=== PATIENT | male | born 1940 | race Caucasian/White ===

== ENCOUNTER 2016-07-14 19:13 | Emergency (ER) | payer MEDICARE, OTHER ==
[2016-07-14] MEDS ORDERED: IBUPROFEN 600 MG TABLET PO STA (20:37)
[2016-07-14] MEDS ORDERED: HYDROcod/ACETAM 5/325 MG TABLET PO STA (20:37)
[2016-07-14] MEDS ORDERED: HYDROcod/ACET 5/325 Prepack 6 PO ONE ×2 (20:40→20:44)
[2016-07-14] MEDS ORDERED: HYDROcod/ACETAM 5/325 MG TABLET ONE (20:43)
[2016-07-14] MEDS ORDERED: IBUPROFEN 600 MG TABLET PO ONE (20:44)
--- NOTE | 2016-07-14 21:28 | XRAY Preliminary Report ---
Exam: XR Ribs w/PA Chest RT IMPRESSION: No rib fracture or pneumothorax. [facility] SITE ID: [id number]
--- NOTE | 2016-07-14 21:30 | XRAY Report ---
EXAM: RIGHT RIB RADIOGRAPHY EXAM DATE: 07/14/2016 09:03 PM. CLINICAL HISTORY: Fall with right thoracic back bruising/pain. COMPARISON: None. TECHNIQUE: 1 view of the chest and 1 views of the ribs. FINDINGS: Bones: Normal. No fracture or bone lesion. Lungs: No focal opacities. No pneumothorax. No pleural effusions. Mediastinum: Heart and mediastinal contours are unremarkable. Other: None. IMPRESSION: No rib fracture or pneumothorax. [facility] Referring Provider Line: [phone] SITE ID: [id number]
--- NOTE | 2016-07-14 21:40 | ED Physician Documentation ---
PD HPI TRUNK INJURY - Stated complaint Stated Complaint: BACK PX/GLF - Chief complaint Chief Complaint: General - History obtained from History obtained from: Patient, Family - History of Present Illness Location: Mid back (mid right thoracic) Type of injury: Fall (slipped and fell onto stump, striking that area of the back) Timing - onset: How many days ago (5) Timing - duration: Days (He thought it would be getting better at this point, but hurting same or worse. Local bruising.) Timing - details: Abrupt onset, Still present Quality: Pain, Spasm Worsened by: Moving, Palpating, Other (deep breathing) Associated symtptoms: No: Weakness, Numbness Contributing factors: No: Anticoagulated Where injury occured: Work Similar symptoms before: Has not had sx before Recently seen: Not recently seen Review of Systems Constitutional: denies: Fever, Chills Cardiac: denies: Palpitations Respiratory: denies: Dyspnea, Cough, Wheezing GI: denies: Abdominal Pain, Nausea, Vomiting : denies: Hematuria Skin: reports: Abrasion (s) (and also big bruise at area). denies: Rash, Lesions Musculoskeletal: reports: Back pain PD PAST MEDICAL HISTORY - Past Medical History Past Medical History: No Respiratory: None Endocrine/Autoimmune: None - Past Surgical History Past Surgical History: Yes Derm: Skin cancer surgery - Present Medications Home Medications: Ambulatory Orders Medication Instructions Recorded Confirmed Hydrocodone/Acetaminophen [[place] 1 each PO Q6H PRN #20 tablet 07/14/16 5-325 Tablet] - Allergies Allergies/Adverse Reactions: Allergies Allergy/AdvReac Type Severity Reaction Status Date / Time No Known Drug Allergies Allergy Verified 07/14/16 19:22 - Social History Does the pt smoke?: No Smoking Status: Never smoker Does the pt drink ETOH?: No Does the pt have substance abuse?: No - Immunizations Immunizations are current?: Yes - POLST Patient has POLST: No PD ED PE NORMAL - Vitals Vital signs reviewed: Yes - General General: Alert and oriented X 3, No acute distress, Well developed/nourished - HEENT HEENT: Atraumatic - Neck Neck: Supple, no meningeal sign, No bony TTP - Cardiac Cardiac: RRR, No murmur - Respiratory Respiratory: Clear bilaterally - Abdomen Abdomen: Soft, Non tender - Back Back: No CVA TTP, Other (right thoracic area with bruising and tenderness but no crepitance about t8-10 area. ) - Derm Derm: Normal color, Warm and dry - Neuro Neuro: Alert and oriented X 3, No motor deficit, No sensory deficit, Normal speech Results - Vitals Vitals: Oxygen O2 Source Room air - Rads (name of study) rib with chest Radiology: Prelim report reviewed (no fractures seen. Lungs normal. ) PD MEDICAL DECISION MAKING - ED course Complexity details: considered differential (big bruise on exam and symptoms concerning for rib fractures, but none seen on CT. ), d/w patient Departure - Departure Disposition: Home, Self Care Clinical Impression: Accidental fall Qualifiers: Encounter type: initial encounter Qualified Code(s): W19.XXXA - Unspecified fall, initial encounter Back contusion Qualifiers: Encounter type: initial encounter Laterality: right Qualified Code(s): S20.221A - Contusion of right back wall of thorax, initial encounter Condition: Stable Record reviewed to determine appropriate education?: Yes Instructions: ED Contusion Back Follow-Up: Humberto Hanks MD [Primary Care Provider] - Prescriptions: Hydrocodone/Acetaminophen [[place] 5-325 Tablet] 1 each PO Q6H PRN #20 tablet PRN Reason: Pain Comments: No fractures on xray. Still hurts though. Naproxen or Ibuprofen twice daily and add hydrocodone as needed for pains. Activity as able. Discharge Date/Time: 07/14/16 22:15
[2016-07-14 21:50] VITALS: BP 168/85
== END 2016-07-14 22:15 | disposition home or self-care (01) ==
LOC: ED 19:13
DX: S20.221A Contusion of right back wall of thorax, initial encounter (principal); W19.XXXA Unspecified fall, initial encounter
CPT/HCPCS: 71101; 99283; A9270

== ENCOUNTER 2016-08-31 14:01 | Outpatient (CLI) | payer MEDICARE, OTHER ==
--- NOTE | 2016-08-31 20:55 | XRAY Report ---
THREE VIEW RIGHT FOOT: 08/31/2016 CLINICAL INDICATION: Right heel pain. AP, lateral, oblique views of the right foot demonstrate plantar calcaneal spurring. There is no davina dence of acute fracture or dislocation. No radiopaque foreign body is seen in the soft tissues. IMPRESSION: PLANTAR CALCANEAL SPURRING. JOB #: [id number] EXT JOB #:[id number]
== END 2016-08-31 14:02 | disposition home or self-care (01) ==
LOC: DI 14:01
PROVIDERS: ATTEND Podiatrist
DX: M77.31 Calcaneal spur, right foot (principal)

== ENCOUNTER 2016-10-22 04:44 | Emergency (ER) | payer MEDICARE, OTHER ==
[2016-10-22] MEDS ORDERED: LIDOCAINE 2%-EPI 1:100000 20 ML MDV ONE (05:03)
[2016-10-22] MEDS ORDERED: TETANUS/DIPHTHERIA/PERTUSSIS 0.5 ML SYRINGE IM ONE ×2 (05:04→06:09)
--- NOTE | 2016-10-22 05:53 | ED Physician Documentation ---
PD HPI HEAD INJURY - Stated complaint Stated Complaint: FOREHEAD LACERATION - Chief complaint Chief Complaint: Laceration - History obtained from History obtained from: Patient, Family - History of Present Illness Mechanism of head injury: Fell Where head injury occurred: Home Timing - onset: How many minutes ago (30) Location of injury: Left, Front Quality of pain: Pain, Throbbing Associated symptoms: No: LOC, AMS, Nausea / vomiting, Neck pain Symptoms worsen with: Palpation, Movement Contributing factors: No: Anticoagulated, Intoxicated Similar symptoms before: Has not had sx before Recently seen: Not recently seen - Additional information Additional information: Patient is a 76 year old male presenting to the emergency department for a head laceration. patient states that he was walking his dogs when he got pulled over and hit his head on a pipe causing a laceration. patient denies any loc or any other injuries. Patient is not on blood thinners and is awake and alert. Review of Systems Constitutional: denies: Fever, Chills Eyes: denies: Loss of vision, Decreased vision Ears: denies: Drainage/discharge Nose: denies: Epistaxis Throat: denies: Dental pain / toothache Cardiac: denies: Chest pain / pressure GI: denies: Nausea, Vomiting : reports: Reviewed and negative Skin: reports: Laceration (s) Musculoskeletal: denies: Neck pain, Back pain, Extremity pain, Joint pain Neurologic: reports: Head injury. denies: Generalized weakness, Focal weakness , Syncope, Seizure, Confused, Altered mental status, LOC Immunocompromised: denies: Immunocompromised PD PAST MEDICAL HISTORY - Past Medical History Respiratory: None Endocrine/Autoimmune: None - Past Surgical History Past Surgical History: Yes Derm: Skin cancer surgery - Present Medications Home Medications: Ambulatory Orders Medication Instructions Recorded Confirmed Diabetic Med 10/22/16 - Allergies Allergies/Adverse Reactions: Allergies Allergy/AdvReac Type Severity Reaction Status Date / Time No Known Drug Allergies Allergy Verified 10/22/16 04:52 - Social History Does the pt smoke?: No Smoking Status: Never smoker Does the pt drink ETOH?: No Does the pt have substance abuse?: No - Immunizations Immunizations are current?: Yes - POLST Patient has POLST: No PD ED PE NORMAL - Vitals Vital signs reviewed: Yes - General General: Alert and oriented X 3 - HEENT HEENT: PERRL, Ears normal, Moist mucous membranes - Neck Neck: Supple, no meningeal sign, No bony TTP - Cardiac Cardiac: No murmur - Respiratory Respiratory: No respiratory distress - Derm Derm: Other (laceration as described above) - Extremities Extremities: No deformity, Normal ROM s pain - Neuro Neuro: Alert and oriented X 3, No motor deficit, No sensory deficit, Normal speech - Psych Psych: Normal mood PD ED PE EXPANDED - HEENT HEENT: Head injury (3cm laceration with surrounding abrasion over patient's left eye) Results - Vitals Vitals: Vital Signs - 24 hr 10/22/16 04:50 Temperature 36.5 C Heart Rate 66 Respiratory 18 Rate Blood Pressure 199/99 H O2 Saturation 96 Oxygen O2 Source Room air Procedures - Laceration (location) left forehead Length in cm: 3 Wound type: Curved Neurovascular status: Sensory intact, Vascular intact Anesthesia: Lidocaine 2% with epi Wound Preparation: Chlorhexadine, Irrigated copiously NS Skin layer closure: Size #-0 - enter number (5), Sutures - enter # (4) Other: Patient tolerated well, Dressing applied, Tetanus booster given Complexity: Simple PD MEDICAL DECISION MAKING - ED course Complexity details: reviewed old records, re-evaluated patient, considered differential, d/w patient, d/w family ED course: Patient was seen and examined at bedside. Patient's laceration was cleaned and repaired as described above. patient was given his tdap. patient required no imaging at this time and was stable for discharge with outpatient follow up. Departure - Departure Disposition: 01 Home, Self Care Clinical Impression: Laceration, Accidental fall Instructions: ED Laceration Facial Sutr Tape Follow-Up: Humberto Hanks MD [Primary Care Provider] - Within 1 week (follow up with your doctor in 5-7 days for suture removal) Comments: Your symptoms today were being caused by a facial laceration and abrasion. it is important to keep the wound clean and dry. You should apply topical antibiotic on the wound and monitor for signs of infection. You should follow up with your doctor in 5-7 days for suture removal. You may return to the emergency department at any time for new, worsening or uncontrollable symptoms.
[2016-10-22 06:16] VITALS: BP 152/83
== END 2016-10-22 06:16 | disposition home or self-care (01) ==
LOC: ED 04:44
DX: S01.81XA Laceration without foreign body of other part of head, initial encounter (principal); W01.198A Fall on same level from slipping, tripping and stumbling with subsequent striking against other object, initial encounter; Y93.K1 Activity, walking an animal; Z23 Encounter for immunization
CPT/HCPCS: 12013; 99283

== ENCOUNTER 2017-09-26 16:59 | Outpatient (CLI) | payer MEDICARE, OTHER ==
--- NOTE | 2017-09-26 18:13 | Ultrasound Report ---
Procedure Date: 09/26/2017 Accession Number: [id number] / [id number] Procedure: US - Head or Neck Soft Tissue CPT Code: FULL RESULT: EXAM: NECK ULTRASOUND EXAM DATE: 09/26/2017 05:51 PM. CLINICAL HISTORY: LOCALIZED SWELLING, MASS AND LUMP, NECK. COMPARISON: None. TECHNIQUE: Real time sonographic imaging of the thyroid was performed by the category manager. Multiple event sales representative static images were saved for review. FINDINGS: THYROID GLAND: Right Lobe: 4.2 x 1.5 x 1.7 cm, volume 6 cc. Normal background echotexture. Right Lobe Nodules: None. Left Lobe: 4.3 x 1.9 x 1.7 cm, volume 7 cc. Normal background echotexture. Left Lobe Nodules: None. Isthmus: 0.5 cm AP. Isthmic Nodules: None. LYMPH NODES: No adenopathy demonstrated in the central or lateral compartment. OTHER: No sonographic abnormalities in the area of discomfort within the right neck. IMPRESSION: Negative soft tissue neck ultrasound. Management recommendations are based on 2015 [place] [employer] Management Guidelines for Adult Patients with Thyroid Nodules and Differentiated Thyroid Cancer. [facility]
== END 2017-09-26 17:00 | disposition home or self-care (01) ==
LOC: DI 16:59
PROVIDERS: ATTEND Physician Assistant Medical
DX: R22.1 Localized swelling, mass and lump, neck (principal)
CPT/HCPCS: 76536

== ENCOUNTER 2018-03-12 08:00 | Outpatient (CLI) | payer MEDICARE, OTHER ==
[2018-03-12 20:19] LABS: BASOPHILS % (AUTO) 0.3 %; EOSINOPHILS # (AUTO) 0.1 10^3/uL (0.0-0.7); EOSINOPHILS % (AUTO) 1.1 %; HGB - HEMOGLOBIN 12.6 g/dL (14.0-18.0); LYMPHOCYTES # (AUTO) 3.7 10^3/uL (1.5-3.5); LYMPHOCYTES % (AUTO) 38.2 %; MEAN CORPUSCULAR HGB CONC 34.6 g/dL (32.0-36.0); MEAN CORPUSCULAR VOLUME 92.7 fL (80.0-94.0); MONOCYTES # (AUTO) 0.6 10^3/uL (0.0-1.0); MONOCYTES % (AUTO) 6.1 %; NEUTROPHILS # (AUTO) 5.3 10^3/uL (1.5-6.6); NEUTROPHILS % (AUTO) 54.3 %; PLT - PLATELET COUNT 214 10^3/uL (130-450); RED BLOOD COUNT 3.92 10^6/uL (4.70-6.10); RED CELL DISTRIBUTION WIDTH 14.1 % (12.0-15.0); WHITE BLOOD COUNT 9.7 x10^3/uL (4.8-10.8)
[2018-03-12 20:30] LABS: ALBUMIN 3.8 g/dL (3.2-5.5); ALBUMIN/GLOBULIN RATIO 1.1 (1.0-2.2); BILIRUBIN,TOTAL 0.5 mg/dL (0.2-1.0); CALCIUM 8.8 mg/dL (8.5-10.3); CREATININE 1.3 mg/dL (0.6-1.2); TOTAL PROTEIN 7.4 g/dL (6.7-8.2)
[2018-03-12 20:52] LABS: HEMOGLOBIN A1C 0.78 g/dL; HEMOGLOBIN A1C % 7.6 % (4.6-6.2)
== END 2018-03-12 23:59 | disposition home or self-care (01) ==
LOC: LAB.R 08:00
PROVIDERS: ATTEND Physician Assistant Medical
DX: E11.9 Type 2 diabetes mellitus without complications (principal); Z79.899 Other long term (current) drug therapy
CPT/HCPCS: 80053; 83036; 85025

== ENCOUNTER 2018-03-12 16:54 | Outpatient (CLI) | payer MEDICARE, OTHER ==
--- NOTE | 2018-03-13 10:40 | XRAY Report ---
Reason: BACK PAIN,LUMBAR,CHRONIC,THORACIC BACK PAIN Procedure Date: 03/12/2018 Accession Number: [id number] / [id number] Procedure: XR - Lumbar Spine Complete CPT Code: FULL RESULT: EXAM: LUMBOSACRAL SPINE RADIOGRAPHY EXAM DATE: 03/12/2018 05:43 PM. CLINICAL HISTORY: Back pain, lumbar, chronic; thoracic back pain. COMPARISONS: None. TECHNIQUE: 5 views. FINDINGS: Alignment: Normal. No spondylolisthesis or scoliosis. Bones: Five [id number]-[id number] lumbar vertebral bodies are present. No fractures or bone lesions. Disks: Normal. Disk heights are maintained. Facets: Severe facet arthropathy at L5 where there is mild narrowing of the osseous neural foramen. Remaining neural foramina are widely patent. Sacroiliac Joints: Unremarkable. Soft Tissues: Calcific atherosclerosis of the aorta. IMPRESSION: L5 facet arthropathy as described. [facility]
--- NOTE | 2018-03-13 11:18 | XRAY Report ---
Reason: BACK PAIN,LUMBAR,CHRONIC,THORACIC BACK PAIN Procedure Date: 03/12/2018 Accession Number: [id number] / [id number] Procedure: XR - Thoracic Spine 2 View CPT Code: FULL RESULT: EXAM: THORACIC SPINE RADIOGRAPHY EXAM DATE: 03/12/2018 05:43 PM. CLINICAL HISTORY: Chronic lumbar pain. Thoracic back pain. COMPARISON: Right ribs with PA chest 07/14/2016. TECHNIQUE: 2 views. FINDINGS: Alignment: Normal. No spondylolisthesis or scoliosis. Bones: No fractures or bone lesions. Disks: Mild degenerative disk disease with disk/osteophyte complex formation at multiple levels in the mid thoracic spine. Soft Tissues: Calcification of the aortic arch and apparent mild cardiomegaly. IMPRESSION: Mild degenerative changes. [facility]
== END 2018-03-12 16:55 | disposition home or self-care (01) ==
LOC: DI 16:54
PROVIDERS: ATTEND Physician Assistant Medical
DX: M47.9 Spondylosis, unspecified (principal); M51.34 Other intervertebral disc degeneration, thoracic region
CPT/HCPCS: 72070; 72110

== ENCOUNTER 2018-05-21 13:57 | Emergency (ER) | payer MEDICARE, OTHER ==
[2018-05-21 14:11] VITALS: BP 108/64
--- NOTE | 2018-05-21 14:17 | ED Physician Documentation ---
PD HPI TRUNK INJURY - Stated complaint Stated Complaint: RIB PAIN/SENT BY - Chief complaint Chief Complaint: Ext Problem - History obtained from History obtained from: Patient - History of Present Illness Location: Anterior chest, Left chest Type of injury: Fall Timing - onset: Enter time (1129), Today Timing - duration: Minutes Timing - details: Abrupt onset, Still present Quality: Pain, Sharp Improved by: Rest Worsened by: Moving, Palpating Associated symtptoms: No: Weakness, Numbness, Tingling, Swelling, Discoloration, Syncope Contributing factors: No: Anticoagulated Where injury occured: Home Similar symptoms before: Has not had sx before Recently seen: Not recently seen - Additional information Additional information: 77-year-old male was outside working when he tripped and fell in his driveway landing on his left anterior chest wall. He has some pain to the left chest at the breast level. He is having a hard time getting a full deep breath. He was not sick prior to this. Review of Systems Constitutional: denies: Fever, Chills Cardiac: reports: Chest pain / pressure. denies: Palpitations, Pedal edema, Calf pain Respiratory: denies: Dyspnea, Cough GI: denies: Abdominal Pain, Nausea, Vomiting PD PAST MEDICAL HISTORY - Past Medical History Respiratory: None Endocrine/Autoimmune: None - Past Surgical History Past Surgical History: Yes Derm: Skin cancer surgery - Present Medications Home Medications: Ambulatory Orders Medication Instructions Recorded Confirmed Diabetic Med 10/22/16 Hydrocodone/Acetaminophen 1 - 2 each PO Q6H PRN #14 tablet 05/21/18 [Hydrocodon-Acetaminophen 5-325] - Allergies Allergies/Adverse Reactions: Allergies Allergy/AdvReac Type Severity Reaction Status Date / Time No Known Drug Allergies Allergy Verified 05/21/18 14:04 - Social History Does the pt smoke?: No Smoking Status: Never smoker Does the pt drink ETOH?: No Does the pt have substance abuse?: No - Immunizations Immunizations are current?: Yes - POLST Patient has POLST: No PD ED PE NORMAL - Vitals Vital signs reviewed: Yes (normal ) - General General: Alert and oriented X 3, No acute distress, Well developed/nourished - HEENT HEENT: Atraumatic, PERRL, EOMI - Neck Neck: Supple, no meningeal sign, No bony TTP - Cardiac Cardiac: RRR, No murmur - Respiratory Respiratory: No respiratory distress, Clear bilaterally, Other (There is specific tenderness to the left anterior chest wall mid clavicular at the level of the nipple. ) - Abdomen Abdomen: Soft, Non tender - Back Back: No CVA TTP, No spinal TTP - Derm Derm: Normal color, Warm and dry, No rash - Extremities Extremities: No deformity, No edema - Neuro Neuro: Alert and oriented X 3, street sweeper 2-12 intact, No motor deficit, No sensory deficit, Normal speech Eye Opening: Spontaneous Motor: Obeys Commands Verbal: Oriented GCS Score: 15 - Psych Psych: Normal mood, Normal affect Results - Vitals Vitals: Vital Signs - 24 hr 05/21/18 14:04 Temperature 36.6 C Heart Rate 61 Respiratory 16 Rate Blood Pressure 108/64 O2 Saturation 97 Oxygen O2 Source Room air - Rads (name of study) rigs with PA chest L Radiology: Prelim report reviewed (Impression: Normal chest and rib radiography.), EMP read indepedently, See rad report PD MEDICAL DECISION MAKING - ED course Complexity details: reviewed results, re-evaluated patient, considered differential, d/w patient ED course: 77-year-old male with a chest wall contusion without evidence of fracture of a rib or collapse of the lung. He will need some pain medication in the near future I discussed with him the delay of onset of the worst of his pain and reasons to return to the emergency department. Departure - Departure Disposition: 01 Home, Self Care Clinical Impression: Chest wall contusion Qualifiers: Encounter type: initial encounter Laterality: left Qualified Code(s): S20.212A - Contusion of left front wall of thorax, initial encounter Condition: Stable Instructions: ED Contusion Rib Follow-Up: Evert Elizondo MD [Primary Care Provider] - Prescriptions: Hydrocodone/Acetaminophen [Hydrocodon-Acetaminophen 5-325] 1 - 2 each PO Q6H PRN #14 tablet PRN Reason: pain
--- NOTE | 2018-05-21 15:17 | XRAY Report ---
Reason: fall left rib pain Procedure Date: 05/21/2018 Accession Number: [id number] / [id number] Procedure: XR - Ribs w/PA Chest LT CPT Code: FULL RESULT: EXAM: LEFT RIB RADIOGRAPHY EXAM DATE: 05/21/2018 02:52 PM. CLINICAL HISTORY: Fall, left rib pain. COMPARISON: THORACIC SPINE 2 VIEW 03/12/2018 5:21 PM. TECHNIQUE: 1 view of the chest and 2 views of the ribs. FINDINGS: Bones: Normal. No fracture or bone lesion. Lungs: No focal opacities. No pneumothorax. No pleural effusions. Mediastinum: Heart and mediastinal contours are unremarkable. Other: None. IMPRESSION: Normal chest and rib radiography. [facility]
== END 2018-05-21 15:30 | disposition home or self-care (01) ==
LOC: ED 13:57
DX: S20.212A Contusion of left front wall of thorax, initial encounter (principal); W01.0XXA Fall on same level from slipping, tripping and stumbling without subsequent striking against object, initial encounter; Y92.008 Other place in unspecified non-institutional (private) residence as the place of occurrence of the external cause
CPT/HCPCS: 99283

== ENCOUNTER 2018-09-24 15:44 | Outpatient (CLI) | payer MEDICARE, OTHER ==
[2018-09-24 16:09] LABS: BASOPHILS % (AUTO) 0.3 %; EOSINOPHILS # (AUTO) 0.1 10^3/uL (0.0-0.7); EOSINOPHILS % (AUTO) 1.4 %; HGB - HEMOGLOBIN 11.3 g/dL (14.0-18.0); LYMPHOCYTES # (AUTO) 2.5 10^3/uL (1.5-3.5); LYMPHOCYTES % (AUTO) 36.1 %; MEAN CORPUSCULAR HEMOGLOBIN 31.2 pg (27.0-31.0); MEAN CORPUSCULAR HGB CONC 32.3 g/dL (32.0-36.0); MEAN CORPUSCULAR VOLUME 96.7 fL (80.0-94.0); MEAN PLATELET VOLUME 10.1 fL (7.4-11.4); MONOCYTES # (AUTO) 0.4 10^3/uL (0.0-1.0); MONOCYTES % (AUTO) 5.9 %; NEUTROPHILS # (AUTO) 3.9 10^3/uL (1.5-6.6); NEUTROPHILS % (AUTO) 55.9 %; PLT - PLATELET COUNT 194 10^3/uL (130-450); RED BLOOD COUNT 3.62 10^6/uL (4.70-6.10); RED CELL DISTRIBUTION WIDTH 14.1 % (12.0-15.0)
[2018-09-24 16:19] LABS: CALCIUM 8.9 mg/dL (8.5-10.3)
[2018-09-24 16:44] LABS: HB2 TOTAL 11.9 g/dL; HEMOGLOBIN A1C 0.67 g/dL; HEMOGLOBIN A1C % 7.3 % (4.6-6.2)
== END 2018-09-24 15:45 | disposition home or self-care (01) ==
LOC: LAB 15:44
PROVIDERS: ATTEND Family Medicine
DX: I10 Essential (primary) hypertension (principal); E11.9 Type 2 diabetes mellitus without complications
CPT/HCPCS: 36415; 80048; 83036; 85025

== ENCOUNTER 2018-10-16 19:02 | Outpatient (CLI) | payer MEDICARE, OTHER | END 2018-10-16 19:03 | disposition EMS.NT | LOC: EMS 19:02 | PROVIDERS: ATTEND Surgery | DX: R55 Syncope and collapse (principal); R11.2 Nausea with vomiting, unspecified ==

== ENCOUNTER 2019-04-23 20:15 | Emergency (ER) | payer MEDICARE, OTHER ==
[2019-04-23 20:22] VITALS: BP 142/70
--- NOTE | 2019-04-23 20:45 | XRAY Report ---
Reason: fall on to L side of chest Procedure Date: 04/23/2019 Accession Number: [id number] / [id number] Procedure: XR - Chest 2 View X-Ray CPT Code: 75299 Final Report FULL RESULT: EXAM: CHEST RADIOGRAPHY EXAM DATE: 04/23/2019 08:33 PM. CLINICAL HISTORY: Fall on to left side of chest. COMPARISON: RIBS W/PA CHEST LT 05/21/2018 2:46 PM. TECHNIQUE: 2 views. FINDINGS: Lungs/Pleura: No focal opacities evident. No pleural effusion. No pneumothorax. Normal volumes. Mediastinum: Heart and mediastinal contours are unremarkable. Other: None. IMPRESSION: Normal 2-view chest radiography. [facility]
--- NOTE | 2019-04-23 21:10 | ED Physician Documentation ---
History of Present Illness - Stated complaint Stated Complaint: CHEST INJ - Chief complaint Chief Complaint: Trauma Ch/Bk - History obtained from History obtained from: Patient (78-year-old male who presents at his 's urgent's after he tripped and fell earlier this morning and landed on a rock on his left chest wall. He presents now with left chest wall soreness. He did not feel the need to come in but his was persistent. He has been taking rara-oqk-xoabgyf Tylenol or ibuprofen with improvement in the pain. He denies shortness of breath, chest pain at rest, abdominal pain, or other injuries during the fall. Patient states the fall was mechanical and he had no prodromal symptoms.) Review of Systems Constitutional: denies: Fever, Chills Cardiac: reports: Other (Chest wall pain). denies: Chest pain / pressure, Palpitations Respiratory: denies: Dyspnea, Cough, Hemoptysis, Wheezing GI: denies: Abdominal Pain, Nausea, Vomiting Skin: denies: Rash, Lesions, Abrasion (s), Laceration (s) Musculoskeletal: denies: Neck pain, Back pain, Extremity pain, Extremity swelling Neurologic: denies: Generalized weakness, Focal weakness, Near syncope, Syncope, Seizure, Confused, Headache, Head injury, LOC PD PAST MEDICAL HISTORY - Past Medical History Respiratory: None Endocrine/Autoimmune: None - Past Surgical History Past Surgical History: Yes Derm: Skin cancer surgery - Present Medications Home Medications: Ambulatory Orders Medication Instructions Recorded Confirmed Diabetic Med 10/22/16 Hydrocodone/Acetaminophen 1 - 2 each PO Q6H PRN #14 tablet 05/21/18 [Hydrocodon-Acetaminophen 5-325] - Allergies Allergies/Adverse Reactions: Allergies Allergy/AdvReac Type Severity Reaction Status Date / Time No Known Drug Allergies Allergy Verified 04/23/19 20:22 - Social History Does the pt smoke?: No Smoking Status: Never smoker Does the pt drink ETOH?: No Does the pt have substance abuse?: No - Immunizations Immunizations are current?: Yes - POLST Patient has POLST: No PD ED PE NORMAL - Vitals Vital signs reviewed: Yes - General General: Alert and oriented X 3, No acute distress, Well developed/nourished - HEENT HEENT: Atraumatic, EOMI - Neck Neck: Supple, no meningeal sign, No adenopathy - Cardiac Cardiac: RRR, No murmur, Other (Tenderness left upper chest wall, no crepitus, no contusion.) - Respiratory Respiratory: No respiratory distress, Clear bilaterally - Abdomen Abdomen: Soft - Derm Derm: Normal color, Warm and dry - Extremities Extremities: No deformity, No tenderness to palpate, Normal ROM s pain, No edema - Neuro Neuro: Alert and oriented X 3 Eye Opening: Spontaneous Motor: Obeys Commands Verbal: Oriented GCS Score: 15 - Psych Psych: Normal mood, Normal affect Results - Vitals Vitals: Vital Signs - 24 hr 04/23/19 04/23/19 20:20 21:11 Temperature 98.6 C H Heart Rate 58 L Respiratory 16 16 Rate Blood Pressure 142/70 H O2 Saturation 96 Oxygen O2 Source Room air PD MEDICAL DECISION MAKING - ED course Complexity details: reviewed results, considered differential, d/w patient ED course: 78-year-old male who presents with left chest wall tenderness after falling onto a rock today. The fall is described as mechanical and there does not here to be any prodromal symptoms leading to the fall. Patient has not had any shortness of breath Or extreme discomfort.The chest x-ray done here was negative. Patient had mild tenderness to palpation of the left chest wall but otherwise a reassuring exam. Advised the patient he may utilize a cool compress as well as ibuprofen or Tylenol for discomfort and advised patient on the expected duration of discomfort. I discussed return precautions. Departure - Departure Disposition: 01 Home, Self Care Clinical Impression: Rib pain on left side Contusion, chest wall Qualifiers: Encounter type: initial encounter Laterality: left Qualified Code(s): S20.212A - Contusion of left front wall of thorax, initial encounter Condition: Good Instructions: ED Contusion Chest Wall, ED Contusion Rib Comments: You have a contusion (bruise) of the chest wall and left upper ribs. This will heal on its own w/in a week or two. I recommend a cool compress to the area and taking ibuprofen or tylenol as needed for pain. Rib injuries can be very sore, especially with movement and deep breaths, and it can be helpful to hold pressure over the painful area when you breath deep or move around. If you have worsening pain or shortness of breath, return to the ER.
== END 2019-04-23 21:41 | disposition home or self-care (01) ==
LOC: ED 20:15
DX: R07.81 Pleurodynia (principal); S20.212A Contusion of left front wall of thorax, initial encounter; W19.XXXA Unspecified fall, initial encounter; W22.09XA Striking against other stationary object, initial encounter
CPT/HCPCS: 71046; 99283; 99284

== ENCOUNTER 2019-04-30 10:44 | Outpatient (CLI) | payer MEDICARE, OTHER ==
[2019-04-30 11:17] LABS: BASOPHILS % (AUTO) 0.3 %; EOSINOPHILS # (AUTO) 0.1 10^3/uL (0.0-0.7); HGB - HEMOGLOBIN 11.9 g/dL (14.0-18.0); LYMPHOCYTES # (AUTO) 2.6 10^3/uL (1.5-3.5); LYMPHOCYTES % (AUTO) 38.1 %; MEAN CORPUSCULAR HEMOGLOBIN 30.6 pg (27.0-31.0); MEAN CORPUSCULAR HGB CONC 32.5 g/dL (32.0-36.0); MEAN CORPUSCULAR VOLUME 94.1 fL (80.0-94.0); MEAN PLATELET VOLUME 9.6 fL (7.4-11.4); MONOCYTES # (AUTO) 0.6 10^3/uL (0.0-1.0); MONOCYTES % (AUTO) 8.4 %; NEUTROPHILS # (AUTO) 3.6 10^3/uL (1.5-6.6); NEUTROPHILS % (AUTO) 51.8 %; PLT - PLATELET COUNT 193 10^3/uL (130-450); RED BLOOD COUNT 3.89 10^6/uL (4.70-6.10); RED CELL DISTRIBUTION WIDTH 13.4 % (12.0-15.0); WHITE BLOOD COUNT 6.9 x10^3/uL (4.8-10.8)
[2019-04-30 11:33] LABS: ALBUMIN 4.2 g/dL (3.2-5.5); ALBUMIN/GLOBULIN RATIO 1.1 (1.0-2.2); ALKALINE PHOSPHATASE 44 IU/L (42-121); ALT ALANINE AMINOTRANSFERASE 23 IU/L (10-60); AST ASPARTATE AMINOTRANSFERASE 32 IU/L (10-42); BILIRUBIN,TOTAL 0.8 mg/dL (0.2-1.0); BUN - BLOOD UREA NITROGEN 25 mg/dL (6-20); CALCIUM 9.2 mg/dL (8.5-10.3); CARBON DIOXIDE - CO2 25 mmol/L (21-32); CHLORIDE 101 mmol/L (101-111); CHOL/HDL RATIO 4.8 (<5.0); CHOLESTEROL 106 mg/dL; CREATININE 1.3 mg/dL (0.6-1.2); GFR - MDRD 54 (>89); GLUCOSE 135 mg/dL (70-100); HDL CHOLESTEROL 22 mg/dL; LDL CHOLESTEROL,CALCULATED 49 mg/dL; LDL/HDL RATIO 2.2 (<3.6); SODIUM 137 mmol/L (135-145); TOTAL PROTEIN 7.9 g/dL (6.7-8.2); VLDL CHOLESTEROL 35 mg/dL
[2019-04-30 11:40] LABS: HB2 TOTAL 12.3 g/dL; HEMOGLOBIN A1C 0.7 g/dL; HEMOGLOBIN A1C % 7.4 % (4.6-6.2)
== END 2019-04-30 10:45 | disposition home or self-care (01) ==
LOC: LAB 10:44
PROVIDERS: ATTEND Family Medicine
DX: Z00.00 Encounter for general adult medical examination without abnormal findings (principal); E66.9 Obesity, unspecified; I10 Essential (primary) hypertension; E11.9 Type 2 diabetes mellitus without complications; M54.5 Low back pain; Z12.5 Encounter for screening for malignant neoplasm of prostate; G89.29 Other chronic pain
CPT/HCPCS: 36415; 80053; 80061; 83036; 84443; 85025; G0103; 83721; 84153

== ENCOUNTER 2019-07-23 13:44 | Emergency (ER) | payer MEDICARE, OTHER ==
[2019-07-23 13:52] VITALS: BP 149/81
--- NOTE | 2019-07-23 14:26 | ED Physician Documentation ---
History of Present Illness - Stated complaint Stated Complaint: FALL, CHEST BRUISING, LT KNEE - Chief complaint Chief Complaint: General - History obtained from History obtained from: Patient - History of Present Illness Timing: Prior to arrival (5 days ago) Pain level max: 6 Pain level now: 1 Quality: sharp, throbbing - Additonal information Additional information: 78 year old male here with cc of anterior chest wall pain and left medial knee pain after a fall 5 nights ago. he was chasing his dog outside and got his feet tangled under him. Denies LOC, neck pain. He has a large bruise on the left chest that has begun to yellow. He denies pleuritic pain, no cough or hemoptysis. no fevers or dyspnea. he is here at the behest of his so who is worried about the location of the bruise. Also with large bruise on left medial knee. able to have nearly normal gait, though has chronic right hip pain, so mild limp. has been taking tylenol for hip pain and it help the knee pain. he declines analgesia in the ED today Review of Systems Constitutional: denies: Fever, Chills Eyes: denies: Loss of vision, Decreased vision, Discharge Cardiac: denies: Chest pain / pressure, Palpitations, Calf pain Respiratory: denies: Dyspnea, Cough, Hemoptysis, Wheezing GI: denies: Abdominal Pain, Abdominal Swelling : denies: Dysuria Skin: reports: Other (bruising anterior left chest and medial left knee) Musculoskeletal: reports: Extremity pain, Joint pain. denies: Neck pain, Back pain Psychiatric: denies: Depressed Immunocompromised: denies: Immunocompromised PD PAST MEDICAL HISTORY - Past Medical History Cardiovascular: None Respiratory: None Neuro: None Endocrine/Autoimmune: None, Type 2 diabetes GI: None : None HEENT: None Psych: None Musculoskeletal: None Derm: None - Past Surgical History Past Surgical History: Yes Derm: Skin cancer surgery - Present Medications Home Medications: Ambulatory Orders Medication Instructions Recorded Confirmed Diabetic Med 10/22/16 Hydrocodone/Acetaminophen 1 - 2 each PO Q6H PRN #14 tablet 05/21/18 [Hydrocodon-Acetaminophen 5-325] - Allergies Allergies/Adverse Reactions: Allergies Allergy/AdvReac Type Severity Reaction Status Date / Time No Known Drug Allergies Allergy Verified 07/23/19 13:48 - Social History Does the pt smoke?: No Smoking Status: Never smoker Does the pt drink ETOH?: No Does the pt have substance abuse?: No - Immunizations Immunizations are current?: Yes - POLST Patient has POLST: No PD ED PE NORMAL - Vitals Vital signs reviewed: Yes - General General: Alert and oriented X 3, No acute distress, Well developed/nourished - HEENT HEENT: Atraumatic, PERRL - Neck Neck: Supple, no meningeal sign, No adenopathy - Cardiac Cardiac: RRR, No murmur, No gallop - Respiratory Respiratory: No respiratory distress, Clear bilaterally, Other (large yellow bruise 4x4 cm on the anterior left chest just above nipple line. no crepitus. Pt able to take deep full breaths, normal excursion) - Abdomen Abdomen: Normal bowel sounds - Extremities Extremities: Other (Swelling left medial knee with ecchymosis. no laxity with stress testing. Normal flexion/extension of knee. normal gait. normal motor strength of left leg) - Neuro Neuro: Alert and oriented X 3, movers 2-12 intact, No motor deficit, No sensory deficit, Normal speech - Psych Psych: Normal mood Results - Vitals Vitals: Vital Signs - 24 hr 07/23/19 13:48 Temperature 36.5 C Heart Rate 75 Respiratory 17 Rate Blood Pressure 149/81 H O2 Saturation 97 Oxygen O2 Source Room air - Rads (name of study) chest Xray Radiology: Final report received (no fracture or acute pathology) left knee Radiology: Final report received (no fracture, dislocation or effusion) PD MEDICAL DECISION MAKING - ED course Complexity details: reviewed results, re-evaluated patient, d/w patient ED course: 78 year old male here with left anterior chest wall and left knee bruising following a fall 5 days ago. no LOC - cxr showed no e/o rib fx, pna or acute pathology. chest wall pain is reproducible. pt denies pleuritic chest pain or exertional dyspnea; doubt PE, acs - Left knee xray also negative for acute pathology. Pt has a stable gait. provided with a knee brace - recommend ice, tylenol for pain at home Departure - Departure Disposition: 01 Home, Self Care Clinical Impression: Contusion of chest wall with intact skin, Chest wall contusion Contusion of left knee Qualifiers: Encounter type: initial encounter Qualified Code(s): S80.02XA - Contusion of left knee, initial encounter Condition: Stable Instructions: ED Contusion Chest Wall Follow-Up: Evert Elizondo MD [Primary Care Provider] - Comments: Pawel, I hope you feel better soon! Good news! The xray of your chest is normal. no broken ribs. You have a bad bruise, but I suspect this will heal well over the next week or so. The xray of your left knee also looks good. You also have a bad bruise there. Wear the brace when out of bed. Ice the knee and take tylenol as you have been If your symptoms are not improving, you have labored breathing, can not walk or feel worse in any way, please return for a second look
--- NOTE | 2019-07-23 14:59 | XRAY Report ---
Reason: cough Procedure Date: 07/23/2019 Accession Number: [id number] / [id number] Procedure: XR - Chest 2 View X-Ray CPT Code: 44930 Final Report FULL RESULT: PROCEDURE: Chest 2 View X-Ray INDICATIONS: cough TECHNIQUE: 2 view(s) of the chest. COMPARISON: None. FINDINGS: Surgical changes and devices: None. Lungs and pleura: No pleural effusions or pneumothorax. Lungs are clear. Mediastinum: Mediastinal contours are normal. Heart size is normal. Bones and chest wall: No suspicious bony abnormalities. Soft tissues appear unremarkable. IMPRESSION: No acute cardiopulmonary pathology. Reviewed by: Arun Sullivan MD on 07/23/2019 2:58 PM PDT Approved by: Arun Sullivan MD on 07/23/2019 2:58 PM PDT Station ID: [id number]
--- NOTE | 2019-07-23 15:00 | XRAY Report ---
Reason: fall 5 days ago with bruising Procedure Date: 07/23/2019 Accession Number: [id number] / [id number] Procedure: XR - Knee 3 View LT CPT Code: Final Report FULL RESULT: PROCEDURE: Knee 3 View LT INDICATIONS: fall 5 days ago with bruising TECHNIQUE: 3 views of the left knee(s) were acquired. COMPARISON: None. FINDINGS: Bones: No fractures or dislocations. No suspicious bony lesions. Soft tissues: No joint effusion. No suspicious soft tissue calcifications. IMPRESSION: No acute left knee fracture or dislocation. No joint effusion. Reviewed by: Arun Sullivan MD on 07/23/2019 2:59 PM PDT Approved by: Arun Sullivan MD on 07/23/2019 2:59 PM PDT Station ID: [id number]
== END 2019-07-23 16:10 | disposition home or self-care (01) ==
LOC: ED 13:44
DX: S20.212A Contusion of left front wall of thorax, initial encounter (principal); S80.02XA Contusion of left knee, initial encounter; W18.30XA Fall on same level, unspecified, initial encounter; Y93.89 Activity, other specified; E11.9 Type 2 diabetes mellitus without complications; Z79.84 Long term (current) use of oral hypoglycemic drugs
CPT/HCPCS: 71046; 99283

== ENCOUNTER 2019-08-26 10:16 | Outpatient (CLI) | payer MEDICARE, OTHER ==
[2019-08-26 12:28] LABS: BASOPHILS % (AUTO) 0.4 %; EOSINOPHILS # (AUTO) 0.1 10^3/uL (0.0-0.7); EOSINOPHILS % (AUTO) 0.9 %; LYMPHOCYTES # (AUTO) 2.4 10^3/uL (1.5-3.5); MEAN CORPUSCULAR HEMOGLOBIN 31.6 pg (27.0-31.0); MEAN CORPUSCULAR HGB CONC 31.5 g/dL (32.0-36.0); MEAN CORPUSCULAR VOLUME 100.3 fL (80.0-94.0); MEAN PLATELET VOLUME 10.2 fL (7.4-11.4); MONOCYTES # (AUTO) 0.6 10^3/uL (0.0-1.0); MONOCYTES % (AUTO) 8.5 %; NEUTROPHILS # (AUTO) 3.8 10^3/uL (1.5-6.6); NEUTROPHILS % (AUTO) 54.6 %; PLT - PLATELET COUNT 211 10^3/uL (130-450); RED BLOOD COUNT 3.48 10^6/uL (4.70-6.10); RED CELL DISTRIBUTION WIDTH 13.6 % (12.0-15.0)
[2019-08-26 13:02] LABS: CALCIUM 8.8 mg/dL (8.5-10.3); CREATININE 1.1 mg/dL (0.6-1.2)
[2019-08-26 13:33] LABS: HB2 TOTAL 11.6 g/dL; HEMOGLOBIN A1C 0.59 g/dL; HEMOGLOBIN A1C % 6.8 % (4.6-6.2)
== END 2019-08-26 23:59 | disposition home or self-care (01) ==
LOC: LAB.WCP 10:16
PROVIDERS: ATTEND Family Medicine
DX: M54.16 Radiculopathy, lumbar region (principal); E11.9 Type 2 diabetes mellitus without complications; I10 Essential (primary) hypertension
CPT/HCPCS: 36415; 80048; 83036; 85025

== ENCOUNTER 2019-11-24 11:31 | Outpatient (CLI) | payer MEDICARE, OTHER ==
--- NOTE | 2019-11-24 17:44 | XRAY Report ---
PROCEDURE: Hips 2V BILAT INDICATIONS: SACROILIAC JOINT PAIN,LUMBAR RADICULOPATHY TECHNIQUE: 2 views of the right hip and left hip were acquired. COMPARISON: None FINDINGS: Bones: No fractures or dislocations. No suspicious bony lesions. The visualized pelvic ring appear s intact. Mild bilateral hip osteoarthritis. Soft tissues: No suspicious soft tissue calcifications or masses. IMPRESSION: Mild bilateral hip osteoarthritis. Reviewed by: Jammie Duggan MD, PhD on 11/24/2019 5:43 PM PDT Approved by: Jammie Duggan MD, PhD on 11/24/2019 5:43 PM PDT Station ID: [id number]
--- NOTE | 2019-11-24 17:47 | XRAY Report ---
PROCEDURE: Lumbar Spine Complete INDICATIONS: SACROILIAC JOINT PAIN,LUMBAR RADICULOPATHY TECHNIQUE: 4 views of the lumbar spine were acquired. COMPARISON: None. FINDINGS: Bones: 5 [id number] vertebrae are present. There is there is trace L1-L2 and L2-L3 retrolisthe sis. No vertebral body compression fractures. No suspicious bony lesions. Mild L1-L2, L2-L3, L3-L4, L4-L5 and L5-S1 degenerative disc disease. Mild L5-S1 facet arthropathy. Soft tissues: Overlying bowel gas pattern is normal. No suspicious soft tissue calcifications. Obliques: No pars interarticularis defects. IMPRESSION: 1. Mild multilevel degenerative disc disease. 2. Mild L5-S1 facet arthropathy. 3. No fracture. No acute osseous lesion. If there is continued clinical concern for pathology, then M RI should be considered for further evaluation. Reviewed by: Jammie Duggan MD, PhD on 11/24/2019 5:46 PM PDT Approved by: Jammie Duggan MD, PhD on 11/24/2019 5:46 PM PDT Station ID: [id number]
== END 2019-11-24 11:32 | disposition home or self-care (01) ==
LOC: DI 11:31
PROVIDERS: ATTEND Family Medicine
DX: M51.17 Intervertebral disc disorders with radiculopathy, lumbosacral region (principal); M53.3 Sacrococcygeal disorders, not elsewhere classified; M16.0 Bilateral primary osteoarthritis of hip
CPT/HCPCS: 72110; 73521

== ENCOUNTER 2020-03-11 08:00 | Outpatient (CLI) | payer MEDICARE, OTHER ==
[2020-03-11 12:27] LABS: CALCIUM 9.6 mg/dL (8.5-10.3); CREATININE 1.2 mg/dL (0.6-1.2)
[2020-03-11 12:49] LABS: CREATININE,URINE 134.6 mg/dL; MICROALBUM/CREATININE RATIO,UR 40.1 ug/mg (<30.0); MICROALBUMIN,URINE 5.4 mg/dL (0-300.0); THYROID STIMULATING HORMONE 2.94 uIU/mL (0.34-5.60)
[2020-03-11 12:51] LABS: FREE T3 2.98 pg/mL (2.5-3.9); FREE T4 (FREE THYROXINE) 0.9 ng/dL (0.58-1.64)
[2020-03-11 13:00] LABS: HEMOGLOBIN A1c% 7.7 % (4.27-6.07)
== END 2020-03-11 23:59 | disposition home or self-care (01) ==
LOC: LAB.WCP 08:00
PROVIDERS: ATTEND Family Medicine
DX: R60.9 Edema, unspecified (principal); I48.91 Unspecified atrial fibrillation; E66.9 Obesity, unspecified; I10 Essential (primary) hypertension; E11.9 Type 2 diabetes mellitus without complications
CPT/HCPCS: 36415; 80048; 82043; 82570; 83036; 84439; 84443; 84481

== ENCOUNTER 2020-06-10 08:00 | Outpatient (CLI) | payer MEDICARE, OTHER ==
[2020-06-10 12:32] LABS: MICROALBUM/CREATININE RATIO,UR 80.3 ug/mg (<30.0); MICROALBUMIN,URINE 9.4 mg/dL (0-300.0)
[2020-06-10 19:53] LABS: ESTIMATED AVERAGE GLUCOSE 169 mg/dL (70-100); HEMOGLOBIN A1c% 7.5 % (4.27-6.07)
== END 2020-06-10 23:59 | disposition home or self-care (01) ==
LOC: LAB.WCP 08:00
PROVIDERS: ATTEND Family Medicine
DX: E11.9 Type 2 diabetes mellitus without complications (principal); E66.9 Obesity, unspecified; R80.9 Proteinuria, unspecified; I48.91 Unspecified atrial fibrillation
CPT/HCPCS: 36415; 80048; 82043; 82570; 83036

== ENCOUNTER 2020-09-09 08:00 | Outpatient (CLI) | payer MEDICARE, OTHER ==
[2020-09-09 12:16] LABS: CALCIUM 9.1 mg/dL (8.5-10.3); CREATININE 1.4 mg/dL (0.6-1.2); POTASSIUM 4.6 mmol/L (3.5-5.0)
[2020-09-09 12:20] LABS: ESTIMATED AVERAGE GLUCOSE 171 mg/dL (70-100); HEMOGLOBIN A1c% 7.6 % (4.27-6.07)
[2020-09-09 18:36] LABS: CREATININE,URINE 138.4 mg/dL; MICROALBUM/CREATININE RATIO,UR 23.1 ug/mg (<30.0); MICROALBUMIN,URINE 3.2 mg/dL (0-300.0)
== END 2020-09-09 23:59 | disposition home or self-care (01) ==
LOC: LAB.WCP 08:00
PROVIDERS: ATTEND Family Medicine
DX: R80.9 Proteinuria, unspecified (principal); R60.9 Edema, unspecified; I48.91 Unspecified atrial fibrillation; M54.16 Radiculopathy, lumbar region; I10 Essential (primary) hypertension; E11.9 Type 2 diabetes mellitus without complications
CPT/HCPCS: 36415; 80048; 82043; 82570; 83036

== ENCOUNTER 2022-02-13 19:23 | Emergency (ER) | payer MEDICARE, OTHER ==
--- NOTE | 2022-02-13 20:29 | XRAY Report ---
PROCEDURE: Chest 1 View X-Ray INDICATIONS: fever TECHNIQUE: One view of the chest was acquired. COMPARISON: Chest x-ray 07/23/2019 FINDINGS: Surgical changes and devices: None. Lungs and pleura: No pleural effusions or pneumothorax. Lungs are clear. Mediastinum: Mediastinal contours appear normal. Heart size is normal. Bones and chest wall: No suspicious bony lesions. Overlying soft tissues appear unremarkable. IMPRESSION: No acute pulmonary process. Reviewed by: Angie Shay MD on 02/13/2022 8:28 PM PST Approved by: Angie Shay MD on 02/13/2022 8:28 PM [facility] Station ID: [id number]
[2022-02-13 20:51] LABS: BASOPHILS % (AUTO) 0.2 %; EOSINOPHILS % (AUTO) 0.2 %; HGB - HEMOGLOBIN 11.4 g/dL (14.0-18.0); LYMPHOCYTES # (AUTO) 2.5 10^3/uL (1.5-3.5); LYMPHOCYTES % (AUTO) 20.5 %; MEAN CORPUSCULAR HEMOGLOBIN 30.5 pg (27.0-31.0); MEAN CORPUSCULAR HGB CONC 31.7 g/dL (32.0-36.0); MEAN CORPUSCULAR VOLUME 96.3 fL (80.0-94.0); MEAN PLATELET VOLUME 10.2 fL (7.4-11.4); MONOCYTES # (AUTO) 2.2 10^3/uL (0.0-1.0); MONOCYTES % (AUTO) 17.9 %; NEUTROPHILS # (AUTO) 7.5 10^3/uL (1.5-6.6); NEUTROPHILS % (AUTO) 60.6 %; PLT - PLATELET COUNT 166 10^3/uL (130-450); RED BLOOD COUNT 3.74 10^6/uL (4.70-6.10); RED CELL DISTRIBUTION WIDTH 14.2 % (12.0-15.0); WHITE BLOOD COUNT 12.4 x10^3/uL (4.8-10.8)
[2022-02-13 21:07] LABS: SLIDE REVIEW? Indicated
[2022-02-13 21:09] LABS: ALBUMIN 3.9 g/dL (3.2-5.5); CALCIUM 8.9 mg/dL (8.5-10.3); CREATININE 1.5 mg/dL (0.6-1.2); POTASSIUM 4.2 mmol/L (3.5-5.0)
[2022-02-13 21:24] LABS: B. PARAPERTUSSIS- RESP PCR PAN NOT DETECTED; B. PERTUSSIS- RESP PCR PANEL NOT DETECTED; C. PNEUMONIAE- RESP PCR PANEL NOT DETECTED; CORONAVIRUS 229E-RESP PCR NOT DETECTED; CORONAVIRUS HKU1-RESP PCR NOT DETECTED; CORONAVIRUS NL63-RESP PCR NOT DETECTED; CORONAVIRUS OC43-RESP PCR NOT DETECTED; HUMAN METAPNEUMOVIRUS NOT DETECTED; INFLUENZA A- RESP PCR PANEL NOT DETECTED; INFLUENZA B - RESP PCR PANEL NOT DETECTED; M. PNEUMONIAE- RESP PCR PANEL NOT DETECTED; PARAINFLUENZA VIRUS 1 NOT DETECTED; PARAINFLUENZA VIRUS 2 NOT DETECTED; PARAINFLUENZA VIRUS 3 NOT DETECTED; PARAINFLUENZA VIRUS 4 NOT DETECTED; RHINOVIRUS/ENTEROVIRUS NOT DETECTED; RSV- RESP PCR PANEL NOT DETECTED; SARS-CoV-2 -RESP PCR PANEL NOT DETECTED
[2022-02-13 21:43] LABS: DIFFERENTIAL COMMENT MANUAL=AUTO DIFF; PLATELET ESTIMATE, MANUAL NORMAL (130-450,000) (NORMAL); PLATELET MORPHOLOGY NORMAL APPEARANCE (NORMAL); RBC MORPHOLOGY (MULTIPLE) NORMAL APPEARANCE (NORMAL)
[2022-02-13 23:23] LABS: BILIRUBIN,URINE NEGATIVE (NEGATIVE); GLUCOSE, URINE (UA) >=1000 mg/dL (NEGATIVE); KETONES,URINE (UA) NEGATIVE (NEGATIVE); LEUKOCYTE ESTERASE, URINE NEGATIVE (NEGATIVE); NITRITE,URINE NEGATIVE (NEGATIVE); OCCULT BLOOD,URINE TRACE-INTA (NEGATIVE); PROTEIN,URINE NEGATIVE (NEGATIVE); UROBILINOGEN,URINE 1 (NORMAL) E.U./dL (NORMAL)
[2022-02-13 23:24] LABS: CLARITY,URINE CLEAR (CLEAR)
--- NOTE | 2022-02-14 00:01 | ED Physician Documentation ---
History of Present Illness - Stated complaint Stated Complaint: FEVER, DIZZY, LIGHT HEADED - Chief complaint Chief Complaint: Fever - History obtained from History obtained from: Patient, Family (daughter) - Additonal information Additional information: 81-year-old man with pmh DM2 presented with fever for the past 2 days with T-max 102.4. states he has been having mild nausea and diarrhea but no abd pain, urinary sx, cp, soa, cough, sore throat. Otherwise asymptomatic aside from some weakness and dizziness with position changes. Review of Systems Ten Systems: 10 systems reviewed and negative Constitutional: reports: Fever, Chills, Fatigue PD PAST MEDICAL HISTORY - Past Medical History Past Medical History: Yes Cardiovascular: Hypertension, High cholesterol, Atrial fibrillation Respiratory: None Neuro: None Endocrine/Autoimmune: Type 2 diabetes GI: None : Benign prostate hypertrophy HEENT: None Psych: Depression Musculoskeletal: None Derm: None - Past Surgical History Past Surgical History: Yes Derm: Skin cancer surgery - Present Medications Home Medications: Ambulatory Orders Medication Instructions Recorded Confirmed Apixaban [Eliquis] 5 mg PO BID 02/13/22 02/13/22 Atorvastatin Calcium [Lipitor] 80 mg PO DAILY 02/13/22 02/13/22 Cholecalciferol [Vitamin D3] 2,000 unit PO DAILY 02/13/22 02/13/22 Doxazosin Mesylate [Cardura] 2 mg PO DAILY PM 02/13/22 02/13/22 Empagliflozin [Jardiance] 12.5 mg PO DAILY 02/13/22 02/13/22 Finasteride [Proscar] 5 mg PO DAILY PM 02/13/22 02/13/22 Fluticasone [Flonase] 1 spray IN BID PRN MDD 1-2 sprays 02/13/22 02/13/22 daily Gabapentin [Neurontin] 300 mg PO DAILY PM 02/13/22 02/13/22 Loratadine [Claritin] 10 mg PO DAILY 02/13/22 02/13/22 Losartan [Cozaar] 50 mg PO DAILY 02/13/22 02/13/22 Metoprolol Succinate [Toprol Xl] 12.5 mg PO DAILY 02/13/22 02/13/22 Omeprazole 20 mg PO QDBREAKFAST 02/13/22 02/13/22 PARoxetine HCL [Paxil] 20 mg PO DAILY 02/13/22 02/13/22 amLODIPine [Norvasc] 5 mg PO DAILY PM 02/13/22 02/13/22 metFORMIN [Glucophage] 1,000 mg PO BID 02/13/22 02/13/22 - Allergies Allergies/Adverse Reactions: Allergies Allergy/AdvReac Type Severity Reaction Status Date / Time No Known Drug Allergies Allergy Verified 02/13/22 19:36 - Social History Does the pt smoke?: No Smoking Status: Never smoker Does the pt drink ETOH?: No Does the pt have substance abuse?: No - Immunizations Immunizations are current?: Yes - POLST Patient has POLST: No PD ED PE NORMAL - Vitals Vital signs reviewed: Yes - General General: Alert and oriented X 3, No acute distress, Well developed/nourished - HEENT HEENT: Atraumatic, PERRL, EOMI, Moist mucous membranes, Pharynx benign - Neck Neck: Supple, no meningeal sign - Cardiac Cardiac: RRR - Respiratory Respiratory: No respiratory distress, Clear bilaterally - Abdomen Abdomen: Non tender, Non distended - Derm Derm: Normal color, Warm and dry, No rash - Extremities Extremities: Other (multiple amputated fingers. mild fungal infection BL LE. otherwise without lesions or deformity) - Neuro Neuro: Alert and oriented X 3, No motor deficit, No sensory deficit - Psych Psych: Normal mood, Normal affect Results - Vitals Vitals: Vital Signs - 24 hr 02/13/22 02/13/22 19:31 22:23 Temperature 37.4 C 37.2 C Heart Rate 65 52 L Respiratory 18 16 Rate Blood Pressure 134/63 H 106/69 O2 Saturation 96 98 Oxygen O2 Source Room air - Labs Labs: Laboratory Tests 02/13/22 02/13/22 02/13/22 19:34 20:45 20:45 WBC 12.4 H RBC 3.74 L Hgb 11.4 L Hct 36.0 L MCV 96.3 H MCH 30.5 MCHC 31.7 L RDW 14.2 Plt Count 166 MPV 10.2 Neut # (Auto) 7.5 H Lymph # (Auto) 2.5 [place] # (Auto) 2.2 H Eos # (Auto) 0.0 Baso # (Auto) 0.0 Absolute Nucleated RBC 0.00 Band Neuts % (Manual) Not Reportable Abnorm Lymph % (Manual) Not Reportable Nucleated RBC % 0.0 Neutrophils # (Manual) Not Reportable Lymphocytes # (Manual) Not Reportable Monocytes # (Manual) Not Reportable Eosinophils # (Manual) Not Reportable Basophils # (Manual) Not Reportable Differential Comment MANUAL=AUTO DIFF Manual Slide Review Indicated Platelet Estimate NORMAL (130-450,000) Platelet Morphology NORMAL APPEARANCE RBC Morph Micro Appear NORMAL APPEARANCE Sodium 134 L Potassium 4.2 Chloride 101 Carbon Dioxide 23 Anion Gap 10.0 BUN 23 H Creatinine 1.5 H Estimated GFR (MDRD) 45 L Glucose 188 H Calcium 8.9 Total Bilirubin 1.0 AST 22 ALT 15 Alkaline Phosphatase 50 Total Protein 8.0 Albumin 3.9 Globulin 4.1 Albumin/Globulin Ratio 1.0 Urine Color Urine Clarity Urine pH Ur Specific [place] Urine Protein Urine Glucose (UA) Urine Ketones Urine Occult Blood Urine Nitrite Urine Bilirubin Urine Urobilinogen Ur Leukocyte Esterase Ur Microscopic Review Urine Culture Comments Nasal Adenovirus (PCR) NOT DETECTED Nasal B. parapertussis DNA (PCR) NOT DETECTED Nasal Coronavir 229E PCR NOT DETECTED Nasal Coronavir HKU1 PCR NOT DETECTED Nasal Coronavir NL63 PCR NOT DETECTED Nasal Coronavir OC43 PCR NOT DETECTED Nasal Enterovir/Rhinovir PCR NOT DETECTED Nasal Influenza B PCR NOT DETECTED Nasal Influenza A PCR NOT DETECTED Nasal Parainfluen 1 PCR NOT DETECTED Nasal Parainfluen 2 PCR NOT DETECTED Nasal Parainfluen 3 PCR NOT DETECTED Nasal Parainfluen 4 PCR NOT DETECTED Nasal RSV (PCR) NOT DETECTED Nasal B.pertussis DNA PCR NOT DETECTED Nasal C.pneumoniae (PCR) NOT DETECTED Juan Human Metapneumo PCR NOT DETECTED Nasal M.pneumoniae (PCR) NOT DETECTED Nasal SARS-CoV-2 (PCR) NOT DETECTED 02/13/22 23:14 WBC RBC Hgb Hct MCV MCH MCHC RDW Plt Count MPV Neut # (Auto) Lymph # (Auto) [place] # (Auto) Eos # (Auto) Baso # (Auto) Absolute Nucleated RBC Band Neuts % (Manual) Abnorm Lymph % (Manual) Nucleated RBC % Neutrophils # (Manual) Lymphocytes # (Manual) Monocytes # (Manual) Eosinophils # (Manual) Basophils # (Manual) Differential Comment Manual Slide Review Platelet Estimate Platelet Morphology RBC Morph Micro Appear Sodium Potassium Chloride Carbon Dioxide Anion Gap BUN Creatinine Estimated GFR (MDRD) Glucose Calcium Total Bilirubin AST ALT Alkaline Phosphatase Total Protein Albumin Globulin Albumin/Globulin Ratio Urine Color YELLOW Urine Clarity CLEAR Urine pH 6.0 Ur Specific [place] 1.015 Urine Protein NEGATIVE Urine Glucose (UA) >=1000 H Urine Ketones NEGATIVE Urine Occult Blood TRACE-INTA Urine Nitrite NEGATIVE Urine Bilirubin NEGATIVE Urine Urobilinogen 1 (NORMAL) Ur Leukocyte Esterase NEGATIVE Ur Microscopic Review NOT INDICATED Urine Culture Comments NOT INDICATED Nasal Adenovirus (PCR) Nasal B. parapertussis DNA (PCR) Nasal Coronavir 229E PCR Nasal Coronavir HKU1 PCR Nasal Coronavir NL63 PCR Nasal Coronavir OC43 PCR Nasal Enterovir/Rhinovir PCR Nasal Influenza B PCR Nasal Influenza A PCR Nasal Parainfluen 1 PCR Nasal Parainfluen 2 PCR Nasal Parainfluen 3 PCR Nasal Parainfluen 4 PCR Nasal RSV (PCR) Nasal B.pertussis DNA PCR Nasal C.pneumoniae (PCR) Juan Human Metapneumo PCR Nasal M.pneumoniae (PCR) Nasal SARS-CoV-2 (PCR) PD Medical Decision Making - ED course ED course: 81-year-old male Presenting with fever of unknown origin with largely negative work-up in the emergency department including cxr, u/a, labs, respiratory viral panel. Patient is feeling better and requesting to go home. Symptomatic care discussed and return precautions given. Plan to follow-up with Dr. Cruz outpatient. Departure - Departure Disposition: 01 Home, Self Care Clinical Impression: Fever, Weakness Condition: Good Instructions: ED Fever Unconf Cause Comments: You were seen In the emergency department for evaluation of fever. Your chest x-ray, viral panel, urine, and labs were normal with the exception of Mildly increased white blood cell count which indicates infection or inflammation (WBC 12.4) and a slight issue with your kidney function tests (creatinine 1.5). You should stay well-hydrated and get lots of rest during a period of illness and follow-up with Dr. Cruz this week. Return to the emergency department if you have any new or worsening symptoms or other concerns.
[2022-02-14 00:12] VITALS: BP 122/74
== END 2022-02-14 00:12 | disposition home or self-care (01) ==
LOC: ED 19:23
DX: R50.9 Fever, unspecified (principal); R53.1 Weakness; Z20.822 Contact with and (suspected) exposure to COVID-19; D72.829 Elevated white blood cell count, unspecified; E11.9 Type 2 diabetes mellitus without complications; N40.0 Benign prostatic hyperplasia without lower urinary tract symptoms; I48.91 Unspecified atrial fibrillation; I10 Essential (primary) hypertension
CPT/HCPCS: 36415; 80053; 81001; 81003; 85025; 87086; 87633; 99282; 99284

== ENCOUNTER 2022-09-19 12:46 | Emergency (ER) | payer MEDICARE ==
[2022-09-19 13:05] VITALS: BP 122/82
--- NOTE | 2022-09-19 14:28 | XRAY Report ---
PROCEDURE: Shoulder 3 View RT INDICATIONS: FELL/INJURED R SHOULDER/ PAIN + TENDERNESS w/ MOVE TECHNIQUE: 3 views of the shoulder were acquired. COMPARISON: None. FINDINGS: Bones: No fractures or dislocations. No suspicious bony lesions. Visualized ribs appear intact. Soft tissues: No suspicious soft tissue calcifications. IMPRESSION: No acute bony abnormality. If there is continued clinical concern for pathology or occult fracture, consider follow-up imaging w ith repeat radiographs in 10-14 days and possible advanced imaging (CT, MRI, bone scan) if symptoms p ersist. Reviewed by: Jonas De Los Santos MD on 09/19/2022 2:26 PM PDT Approved by: Jonas De Los Santos MD on 09/19/2022 2:26 PM PDT Station ID: [id number]
--- NOTE | 2022-09-19 14:48 | ED Physician Documentation ---
PD HPI UPPER EXT INJURY - Stated complaint Stated Complaint: RT SHOULDER PX - Chief complaint Chief Complaint: Ext Problem - History obtained from History obtained from: Patient - History of Present Illness Location: Right, Shoulder Type of injury: Fall Where injury occurred: Home Timing - onset: How many days ago (3) Timing - duration: Days Timing - details: Abrupt onset, Still present Improved by: Rest, Immobilization Worsened by: Moving, Palpating Associated symptoms: No: Weakness, Numbness, Tingling, Swelling, Discolored Contributing factors: No: Anticoagulated, Prior ortho surgery, Prosthetic joint, Work related Similar symptoms before: Has not had sx before Recently seen: Not recently seen - Additonal information Additional information: Previously well Miguel Hernández is an 82-year-old male who was in his home next to a table when he turned fell down 2 steps and landed on the top of his right shoulder. Since this time he has had reduced range of motion to the shoulder and some pain associated with movement. He has still been able to do his usual caretaking of his including lifting her by holding his arms at his side. He has worked daily on increasing his range of motion. He continues to have pain he is here today for evaluation. He has never injured his shoulder previously.He was not otherwise injured in the fall Review of Systems Constitutional: denies: Fever Nose: denies: Congestion Throat: denies: Sore throat Respiratory: denies: Cough GI: denies: Vomiting, Diarrhea Skin: denies: Rash Musculoskeletal: reports: Joint pain. denies: Neck pain, Back pain, Extremity swelling, Joint swelling Neurologic: denies: Generalized weakness, Focal weakness, Numbness PD PAST MEDICAL HISTORY - Past Medical History Cardiovascular: Hypertension, High cholesterol, Atrial fibrillation Respiratory: None Neuro: None Endocrine/Autoimmune: Type 2 diabetes GI: None : Benign prostate hypertrophy HEENT: None Psych: Depression Musculoskeletal: None Derm: None - Past Surgical History Past Surgical History: Yes Derm: Skin cancer surgery - Present Medications Home Medications: Ambulatory Orders Medication Instructions Recorded Confirmed Atorvastatin Calcium [Lipitor] 80 mg PO DAILY 02/13/22 02/13/22 Cholecalciferol [Vitamin D3] 2,000 unit PO DAILY 02/13/22 02/13/22 Doxazosin Mesylate [Cardura] 2 mg PO DAILY PM 02/13/22 02/13/22 Empagliflozin [Jardiance] 12.5 mg PO DAILY 02/13/22 02/13/22 Finasteride [Proscar] 5 mg PO DAILY PM 02/13/22 02/13/22 Fluticasone [Flonase] 1 spray IN BID PRN MDD 1-2 sprays 02/13/22 02/13/22 daily Gabapentin [Neurontin] 300 mg PO DAILY PM 02/13/22 02/13/22 Loratadine [Claritin] 10 mg PO DAILY 02/13/22 02/13/22 Losartan [Cozaar] 50 mg PO DAILY 02/13/22 02/13/22 Metoprolol Succinate [Toprol Xl] 12.5 mg PO DAILY 02/13/22 02/13/22 Omeprazole 20 mg PO QDBREAKFAST 02/13/22 02/13/22 PARoxetine HCL [Paxil] 20 mg PO DAILY 02/13/22 02/13/22 amLODIPine [Norvasc] 5 mg PO DAILY PM 02/13/22 02/13/22 metFORMIN [Glucophage] 1,000 mg PO BID 02/13/22 02/13/22 - Allergies Allergies/Adverse Reactions: Allergies Allergy/AdvReac Type Severity Reaction Status Date / Time No Known Drug Allergies Allergy Verified 09/19/22 12:57 - Social History Does the pt smoke?: No Smoking Status: Never smoker Does the pt drink ETOH?: No Does the pt have substance abuse?: No - Immunizations Immunizations are current?: Yes - POLST Patient has POLST: No PD ED PE NORMAL - Vitals Vital signs reviewed: Yes (Hypertensive mild) - General General: Alert and oriented X 3, No acute distress, Well developed/nourished - HEENT HEENT: Atraumatic, PERRL, EOMI - Respiratory Respiratory: No respiratory distress - Derm Derm: Normal color, Warm and dry, No rash - Extremities Extremities: Other (There are missing fingers to the left hand. This has nothing to do with today's visit. There is pain to palpation of the anterior and lateral deltoid. The patient is able to hold his arm in abduction and is able to abduct his arm to 90 degrees. He has pain with internal and external rotation and) - Neuro Neuro: Alert and oriented X 3, stock manager 2-12 intact, No motor deficit, No sensory deficit, Normal speech Eye Opening: Spontaneous Motor: Obeys Commands Verbal: Oriented GCS Score: 15 - Psych Psych: Normal mood, Normal affect Results - Vitals Vitals: Vital Signs - 24 hr 09/19/22 09/19/22 12:50 14:13 Temperature 36.5 C Heart Rate 71 Respiratory 20 19 Rate Blood Pressure 122/82 H O2 Saturation 97 Oxygen O2 Source Room air - Rads (name of study) Right shoulder Relevant Findings:: Prelim report reviewed (Impression: No acute bony abnormality.), EMP independent interpretation of test PD Medical Decision Making - ED course Complexity details: reviewed old records, reviewed results, re-evaluated patient, considered differential, d/w patient ED course: 82-year-old male with this strain of his right shoulder has reduced range of motion and pain with normal appearing plain films. He is able to hold his arm in abduction. He appears to have strained his shoulder and we have placed him into a sling and he is given instructions on range of motion exercises. We referred him to orthopedics for follow-up as needed. Departure - Departure Disposition: 01 Home, Self Care Clinical Impression: Right shoulder strain Qualifiers: Encounter type: initial encounter Qualified Code(s): S46.911A - Strain of unspecified muscle, fascia and tendon at shoulder and upper arm level, right arm, initial encounter Condition: Stable Instructions: ED Sprain Shoulder, ED Contusion Shoulder Follow-Up: Evert Elizondo MD [Primary Care Provider] - Anshul Salinas MD [Provider Admit Priv/Credential] - Comments: Miguel, today it looks like you have sprained your right shoulder. We have provided a sling and one important item with the sling is the range of motion. The recommendation is to remove your arm from the sling and do the range of motion exercises 2-3 times per day. Our expectation is improvement in the range of motion and pain over the next 1-2 weeks. It may take much longer to fully recover. If you are having slow progress or develop new symptoms follow up with the orthopedic doctor. Forms: PCP List Discharge Date/Time: 09/19/22 15:06
== END 2022-09-19 15:06 | disposition home or self-care (01) ==
LOC: ED 12:46
DX: S46.911A Strain of unspecified muscle, fascia and tendon at shoulder and upper arm level, right arm, initial encounter (principal); W10.9XXA Fall (on) (from) unspecified stairs and steps, initial encounter; Y92.009 Unspecified place in unspecified non-institutional (private) residence as the place of occurrence of the external cause; I10 Essential (primary) hypertension; E11.9 Type 2 diabetes mellitus without complications; Z79.4 Long term (current) use of insulin
CPT/HCPCS: 99283

== ENCOUNTER 2022-10-03 08:00 | Outpatient (CLI) | payer MEDICARE ==
--- NOTE | 2022-10-03 12:43 | XRAY Report ---
PROCEDURE: Shoulder 1 View RT INDICATIONS: RIGHT SHOULDER PAIN AXIALARY VIEW ONLY TECHNIQUE: 1 views of the shoulder were acquired. COMPARISON: None. FINDINGS: Bones: Single view of the shoulder demonstrates no fractures or dislocations. No suspicious bony le sions. Soft tissues: No suspicious soft tissue calcifications. IMPRESSION: Single view of the shoulder demonstrates no fracture or dislocation. Reviewed by: Claudio Marley MD on 10/03/2022 12:42 PM PDT Approved by: Claudio Marley MD on 10/03/2022 12:42 PM PDT Station ID: [id number]
== END 2022-10-03 23:59 | disposition home or self-care (01) ==
LOC: DI.WOS 08:00
PROVIDERS: ATTEND Orthopaedic Surgery
DX: M25.511 Pain in right shoulder (principal)

== ENCOUNTER 2023-01-16 23:05 | Emergency (ER) | payer MEDICARE ==
[2023-01-17 00:05] VITALS: O2SAT 100
--- NOTE | 2023-01-17 00:42 | ED Physician Documentation ---
PD HPI UPPER EXT INJURY - Stated complaint Stated Complaint: FALL/R ARM LAC - Chief complaint Chief Complaint: Ext Problem - History obtained from History obtained from: Patient - Additonal information Additional information: HPI from patient. At approximately 10 PM tonight, patient had just turned off the light in the hallway in his house when he lost his balance, causing him to fall to the ground. He sustained right forearm injury with laceration; not clear how he sustained this injury but was temporarily associated with falling to the ground. He denies any other injury including head injury, neck injury. He is up-to-date on tetanus (within past 5 years). Review of Systems Skin: reports: Laceration (s) PD PAST MEDICAL HISTORY - Past Medical History Past Medical History: Yes Cardiovascular: Hypertension, High cholesterol, Atrial fibrillation Respiratory: None Neuro: None Endocrine/Autoimmune: Type 2 diabetes GI: None : Benign prostate hypertrophy HEENT: None Psych: Depression Musculoskeletal: None Derm: None - Past Surgical History Past Surgical History: Yes Derm: Skin cancer surgery - Present Medications Home Medications: Ambulatory Orders Medication Instructions Recorded Confirmed Atorvastatin Calcium [Lipitor] 80 mg PO DAILY 02/13/22 02/13/22 Cholecalciferol [Vitamin D3] 2,000 unit PO DAILY 02/13/22 02/13/22 Doxazosin Mesylate [Cardura] 2 mg PO DAILY PM 02/13/22 02/13/22 Empagliflozin [Jardiance] 12.5 mg PO DAILY 02/13/22 02/13/22 Finasteride [Proscar] 5 mg PO DAILY PM 02/13/22 02/13/22 Fluticasone [Flonase] 1 spray IN BID PRN MDD 1-2 sprays 02/13/22 02/13/22 daily Gabapentin [Neurontin] 300 mg PO DAILY PM 02/13/22 02/13/22 Loratadine [Claritin] 10 mg PO DAILY 02/13/22 02/13/22 Losartan [Cozaar] 50 mg PO DAILY 02/13/22 02/13/22 Metoprolol Succinate [Toprol Xl] 12.5 mg PO DAILY 02/13/22 02/13/22 Omeprazole 20 mg PO QDBREAKFAST 02/13/22 02/13/22 PARoxetine HCL [Paxil] 20 mg PO DAILY 02/13/22 02/13/22 amLODIPine [Norvasc] 5 mg PO DAILY PM 02/13/22 02/13/22 metFORMIN [Glucophage] 1,000 mg PO BID 02/13/22 02/13/22 - Allergies Allergies/Adverse Reactions: Allergies Allergy/AdvReac Type Severity Reaction Status Date / Time No Known Drug Allergies Allergy Verified 01/16/23 23:14 - Social History Does the pt smoke?: No Smoking Status: Never smoker Does the pt drink ETOH?: No Does the pt have substance abuse?: No - Immunizations Immunizations are current?: Yes - POLST Patient has POLST: No PD ED PE NORMAL - Vitals Vital signs reviewed: Yes - General General: Alert and oriented X 3, No acute distress, Well developed/nourished - Neuro Neuro: No motor deficit, No sensory deficit PD ED PE EXPANDED - Extremities Extremities: Tenderness (mild bony TTP medial aspect of proximal right forearm), Laceration KAYLA UE/Hands Visual: 1 - laceration (small skin tear, superficial) 2 - laceration (2 cm length laceration with exposed adipose tissue; medial-most component is superficial depth c/w skin tear) Results - Vitals Vitals: Vital Signs - 24 hr 01/16/23 01/16/23 23:08 23:54 Temperature 36.8 C 36.9 C Heart Rate 61 89 Respiratory 18 17 Rate Blood Pressure 146/74 H 135/75 H O2 Saturation 98 100 Oxygen O2 Source Room air - Rads (name of study) right elbow xrays Relevant Findings:: Prelim report reviewed, EMP independent interpretation of test (I reviewed these images and my interpretation is no evidence of acute in jury including no evidence of fracture, dislocation.), See rad report right forearm xrays Relevant Findings:: Prelim report reviewed, EMP independent interpretation of t est (I reviewed these images my interpretation is no evidence of acute injury including no evidence of fracture.), See rad report Procedures - Laceration (location) Upper extremity right Ventral Length in cm: 2 Wound type: Linear, Into subcut fat, Clean Neurovascular status: Sensory intact, Motor intact, Vascular intact Tendon involvement: Tendon intact Anesthesia: Lidocaine 1% Wound preparation: Chlorhexadine, Irrigated copiously NS, Wound explored, To the base Skin layer closure: Sergio Other: Patient tolerated well, No complications, Neurovascular intact, Dressing applied, Tetanus UTD PD Medical Decision Making - ED course Complexity details: reviewed results, re-evaluated patient, considered differential, d/w patient ED course: X-rays undertaken to ensure that the the findings on exam are not publications sales representative of an open fracture. Fortunately, there is no evidence of injury on the x-rays of the forearm and of the elbow. The more proximal injury (RUE) is a superficial skin tear that does not require any repair. The more distal injury, as diagrammed above, appears to be a skin tear but there is a 2-centimeter component of significant depth (adipose tissue is exposed) and thus it is repaired with sergio as per procedure note. Patient advised to seek follow-up with his primary care provider in 7 to 10 days for removal of the sergio. Return precautions are discussed. Departure - Departure Disposition: 01 Home, Self Care Clinical Impression: Laceration Condition: Good Instructions: ED Laceration Ext Sutr Stap Tape Comments: The laceration on your right forearm was repaired with sergio. You will need to have the sergio removed in 7 to 10 days. Contact your primary care provider's office in the morning when they open to arrange for this appointment. Forms: PCP List
[2023-01-17] MEDS ORDERED: LIDOCAINE 1% 2 ML VIAL SUBQ STA (00:55)
--- NOTE | 2023-01-17 02:09 | XRAY Report ---
PROCEDURE: Elbow 3 View RT INDICATIONS: laceration to right elbow TECHNIQUE: 3 views of the elbow were acquired. COMPARISON: None. FINDINGS: Bones: No fractures or dislocations. No suspicious bony lesions. Soft tissues: No effusion. No suspicious soft tissue calcifications or masses. IMPRESSION: No acute bony abnormality. Reviewed by: Sean Daly MD on 01/17/2023 2:07 AM [facility] Approved by: Sean Daly MD on 01/17/2023 2:07 AM [facility] Station ID: [id number]
--- NOTE | 2023-01-17 02:10 | XRAY Report ---
PROCEDURE: Forearm RT INDICATIONS: laceration to right forearm TECHNIQUE: 2 views of the forearm were acquired. COMPARISON: Same day right elbow radiographs. FINDINGS: Bones: No fractures or dislocations. No suspicious bony lesions. Soft tissues: No suspicious soft tissue calcifications or masses. Mild heterogeneity in the region of the proximal medial forearm. This could represent the site of laceration. No radiopaque foreign ning dy. IMPRESSION: No acute bony abnormality. Reviewed by: Sean Daly MD on 01/17/2023 2:09 AM [facility] Approved by: Sean Daly MD on 01/17/2023 2:09 AM PST Station ID: [id number]
[2023-01-17] MEDS ORDERED: BACITRACIN ZINC OINT 1 PACKET TOP STA (02:34)
[2023-01-17 02:50] VITALS: BP 132/78
== END 2023-01-17 02:50 | disposition home or self-care (01) ==
LOC: ED 23:05
DX: S51.811A Laceration without foreign body of right forearm, initial encounter (principal); W18.30XA Fall on same level, unspecified, initial encounter; Y92.009 Unspecified place in unspecified non-institutional (private) residence as the place of occurrence of the external cause; I10 Essential (primary) hypertension; E11.9 Type 2 diabetes mellitus without complications; Z79.84 Long term (current) use of oral hypoglycemic drugs
CPT/HCPCS: 12001; 99283; 99284

== ENCOUNTER 2023-03-24 18:24 | Inpatient (IN) | payer MEDICARE, OTHER ==
[2023-03-24] MEDS: oxyCODONE 5 MG TABLET PO STA (19:52)
--- NOTE | 2023-03-24 20:52 | CT Report ---
PROCEDURE: CT brain without contrast INDICATIONS: fall, head injury, pt on eliquis TECHNIQUE: Helical axial CT of the brain was obtained without contrast and reformatted in multiple p lanes. Radiation dose reduction was achieved using automated exposure control or adjustment of mA and /or kV according to patient size. COMPARISON: None FINDINGS: CSF spaces: Ventricles are appropriate in size and position. No hydrocephalus. Basal cisterns unre markable. Brain: No midline shift. No intracranial masses or hemorrhage. Proctor-white matter interface is norm al. Moderate atrophy and multifocal white matter chronic ischemic change noted. Atherosclerotic vasc ular calcification noted in the cavernous segments of both internal carotid arteries. Skull and face: Calvarium and skull base are unremarkable without suspicious lesion. Sinuses: Visualized sinuses and mastoids are clear. IMPRESSION: Atrophy and chronic ischemic change without intracranial hemorrhage or mass effect Reviewed by: Emeka Wolf MD on 03/24/2023 7:50 PM [facility] Approved by: Emeka Wolf MD on 03/24/2023 7:50 PM [facility] Station ID: [id number]
[2023-03-24] MEDS: MORPHINE 2 MG/ML CARPUJECT IVP STA (21:02)
[2023-03-24] MEDS: HYDROmorphone 1 MG/ML CARPUJECT IM STA (21:08)
--- NOTE | 2023-03-24 21:11 | CT Report ---
PROCEDURE: CT chest without contrast INDICATIONS: fall, L rib pain TECHNIQUE: Helical axial CT of the chest was obtained without contrast and reformatted in multiple pl anes. Radiation dose reduction was achieved using automated exposure control, adjustment of mA and/or kV according to patient size. COMPARISON: None FINDINGS: [Intravenous contrast limits assessment of solid and vascular structures, particularly for trauma and neoplasm Lungs and pleura: Lungs and pleural spaces are clear without pulmonary infiltrate, pneumothorax or pl eural effusion. Mediastinum: Heart size is normal. No pericardial effusion. No large vessel abnormality. No mediastin al adenopathy by size criteria. Dense atherosclerotic vascular calcification noted involving the aor tic root, coronary vessels and aortic arch. Moderate hiatal hernia Chest wall and lower neck: Thyroid is unremarkable. No axillary or supraclavicular adenopathy by size . Bones: Left posterior ninth and 10th rib fractures with small associated pleural effusion. No pneumot horax. Upper Abdomen: Unremarkable. IMPRESSION: Left posterior nondisplaced ninth and 10th rib fractures without pneumothorax Reviewed by: Emeka Wolf MD on 03/24/2023 8:10 PM [facility] Approved by: Emeka Wolf MD on 03/24/2023 8:10 PM [facility] Station ID: [id number]
--- NOTE | 2023-03-24 21:17 | ED Physician Documentation ---
History of Present Illness - Stated complaint Stated Complaint: FALL - Chief complaint Chief Complaint: Trauma Ch/Bk - History obtained from History obtained from: Patient, Family - History of Present Illness Timing: Today Pain level max: 8 Pain level now: 8 - Additonal information Additional information: Patient is an 82-year-old male who presents to the emergency department after a fall today, going up stairs, falling backwards and landing on the dirt. Complains of left posterior rib pain. Unclear if he struck his head or not. He also complains of bruising and pain to the left forearm. He is on apixaban. No nausea or vomiting. Pain is worse with movement, better with rest. No abdominal pain. No neck pain. Review of Systems Constitutional: denies: Fever, Chills GI: denies: Vomiting, Diarrhea Skin: denies: Rash Musculoskeletal: denies: Neck pain, Back pain Neurologic: denies: Headache PD PAST MEDICAL HISTORY - Past Medical History Past Medical History: Yes Cardiovascular: Hypertension, High cholesterol, Atrial fibrillation Respiratory: None Neuro: None Endocrine/Autoimmune: Type 2 diabetes GI: None : Benign prostate hypertrophy HEENT: None Psych: Depression Musculoskeletal: None Derm: None - Past Surgical History Past Surgical History: Yes Derm: Skin cancer surgery - Present Medications Home Medications: Ambulatory Orders Medication Instructions Recorded Confirmed Atorvastatin Calcium [Lipitor] 80 mg PO DAILY 02/13/22 03/24/23 Cholecalciferol [Vitamin D3] 2,000 unit PO DAILY 02/13/22 03/24/23 Doxazosin Mesylate [Cardura] 2 mg PO DAILY PM 02/13/22 03/24/23 Empagliflozin [Jardiance] 12.5 mg PO DAILY 02/13/22 03/24/23 Finasteride [Proscar] 5 mg PO DAILY PM 02/13/22 03/24/23 Loratadine [Claritin] 10 mg PO DAILY 02/13/22 03/24/23 Losartan [Cozaar] 50 mg PO DAILY 02/13/22 03/24/23 Metoprolol Succinate [Toprol Xl] 12.5 mg PO DAILY 02/13/22 03/24/23 Omeprazole 20 mg PO QDBREAKFAST 02/13/22 03/24/23 amLODIPine [Norvasc] 5 mg PO DAILY PM 02/13/22 03/24/23 metFORMIN [Glucophage] 1,000 mg PO BID 02/13/22 03/24/23 - Allergies Allergies/Adverse Reactions: Allergies Allergy/AdvReac Type Severity Reaction Status Date / Time No Known Drug Allergies Allergy Verified 01/16/23 23:14 - Social History Does the pt smoke?: No Smoking Status: Never smoker Does the pt drink ETOH?: No Does the pt have substance abuse?: No - Immunizations Immunizations are current?: Yes - POLST Patient has POLST: No PD ED PE NORMAL - Vitals Vital signs reviewed: Yes - General General: Alert and oriented X 3, No acute distress - HEENT HEENT: Moist mucous membranes - Neck Neck: Supple, no meningeal sign - Cardiac Cardiac: RRR, Strong equal pulses - Respiratory Respiratory: No respiratory distress, Clear bilaterally - Abdomen Abdomen: Soft, Non tender, Non distended - Derm Derm: Warm and dry - Extremities Extremities: No edema - Neuro Neuro: Alert and oriented X 3 Results - Vitals Vitals: Vital Signs - 24 hr 03/24/23 18:30 Temperature 36.7 C Heart Rate 63 Respiratory 18 Rate Blood Pressure 151/91 H O2 Saturation 98 Oxygen O2 Source Room air - Rads (name of study) CT head Relevant Findings:: Final report received, See rad report CT chest Relevant Findings:: Final report received, See rad report Left forearm x-ray Relevant Findings:: Final report received, See rad report PD Medical Decision Making - ED course Complexity details: reviewed results, re-evaluated patient, considered differential, d/w patient ED course: No acute findings on head CT or left forearm x-ray. His chest CT does show fractures of the ninth and 10th posterior ribs. On the left side. No other acute traumatic injuries. Pain well-controlled with Dilaudid. We will admit for pain control for rib fractures. Discussed the case with Dr. Frazier, general surgery on-call who will admit. This document was made in part using voice recognition software. While efforts are made to proofread this document, sound alike and grammatical errors may occur. Departure - Departure Disposition: 66 [facility] DC/Xfer Clinical Impression: Ribs, multiple fractures Qualifiers: Encounter type: initial encounter Fracture type: closed Laterality: left Qualified Code(s): S22.42XA - Multiple fractures of ribs, left side, initial encounter for closed fracture Contusion of left forearm Qualifiers: Encounter type: initial encounter Qualified Code(s): S50.12XA - Contusion of left forearm, initial encounter Condition: Stable Forms: PCP List
--- NOTE | 2023-03-24 21:17 | XRAY Report ---
PROCEDURE: Forearm LT INDICATIONS: fall, arm pain TECHNIQUE: 2 views of the forearm were acquired. COMPARISON: 01/17/2023 FINDINGS: Bones: No fractures or dislocations. No suspicious bony lesions. First carpal metacarpal instrumen annamaria arthrodesis Soft tissues: No suspicious soft tissue calcifications or masses. IMPRESSION: First [facility] instrumented arthrodesis. No fracture. Reviewed by: Emeka Wolf MD on 03/24/2023 8:16 PM [facility] Approved by: Emeka Wolf MD on 03/24/2023 8:16 PM [facility] Station ID: [id number]
[2023-03-24] MEDS ORDERED: ONDANSETRON 4 MG/2 ML VIAL IVP PRN (22:05)
[2023-03-24] MEDS ORDERED: SODIUM CHLORIDE FLUSH 0.9% 10 ML SYRINGE IVP PRN (22:05)
--- NOTE | 2023-03-24 22:24 | HISTORY & PHYSICAL EXAMINATION ---
Chief Complaint - Chief Complaint Chief Complaint: Left wrist and chest pain History of Present Illness - Admitted From Admitted From:: ED - History Obtained From History obtained from: Patient - History of Present Illness HPI Comment/Other: 82 male who lost his balance walking up the back deck steps, fell, and struck his left arm and left chest on the ground. He required assistance standing. He denies LOC. He has a history of GLF's in the recent past and his family members are in the process of having him evaluated for these events. He denies SOB and only complains of mild left chest pain with deep inspiration. He has mild left forearm discomfort. He denies abdominal discomfort. History - Past Medical History Cardiovascular: reports: Hypertension, High cholesterol, Atrial fibrillation Respiratory: reports: None Neuro: reports: None Endocrine/Autoimmune: reports: Type 2 diabetes GI: reports: None : reports: Benign prostate hypertrophy HEENT: reports: None Psych: reports: Depression Musculoskeletal: reports: None Derm: reports: None MRSA Hx?: No - Past Surgical History Derm: reports: Skin cancer surgery - Family & Social History Living arrangement: At home Living Situation: With spouse/s.o., With family - Substance History Use: Uses substance without health or social issues: NONE Abuse: Recurrent use of substance despite neg consequences: NONE Dependence: Experiences withdrawal or developed tolerances: NONE - POLST Patient has POLST: No Meds/Allgy - Home Medications Home Medications: Ambulatory Orders Medication Instructions Recorded Confirmed Atorvastatin Calcium [Lipitor] 80 mg PO DAILY 02/13/22 03/24/23 Cholecalciferol [Vitamin D3] 2,000 unit PO DAILY 02/13/22 03/24/23 Doxazosin Mesylate [Cardura] 2 mg PO DAILY PM 02/13/22 03/24/23 Empagliflozin [Jardiance] 12.5 mg PO DAILY 02/13/22 03/24/23 Finasteride [Proscar] 5 mg PO DAILY PM 02/13/22 03/24/23 Loratadine [Claritin] 10 mg PO DAILY 02/13/22 03/24/23 Losartan [Cozaar] 50 mg PO DAILY 02/13/22 03/24/23 Metoprolol Succinate [Toprol Xl] 12.5 mg PO DAILY 02/13/22 03/24/23 Omeprazole 20 mg PO QDBREAKFAST 02/13/22 03/24/23 amLODIPine [Norvasc] 5 mg PO DAILY PM 02/13/22 03/24/23 metFORMIN [Glucophage] 1,000 mg PO BID 02/13/22 03/24/23 Apixaban [Eliquis] 5 mg ORAL BID 03/24/23 03/24/23 - Allergies Allergies/Adverse Reactions: Allergies Allergy/AdvReac Type Severity Reaction Status Date / Time No Known Drug Allergies Allergy Verified 01/16/23 23:14 Review of Systems - Constitutional Constitutional: reports: Weakness - Cardiovascular Cariovascular: reports: Irregular heart rate - Neurological Neurological: reports: General weakness, Incoordination - Psychiatric Psychiatric: reports: Depression Exam - Vital Signs Reviewed Vital Signs: Yes Vital Signs: Vital Signs x48h Temp Pulse Resp BP Pulse Ox 03/24/23 18:30 98.1 F 63 18 151/91 H 98 - Physical Exam General Appearance: positive: No acute distress, Alert Eyes Bilateral: positive: Normal inspection, PERRL ENT: positive: ENT inspection nml, Pharynx nml Neck: positive: Nml inspection, Thyroid nml, Trachea midline Respiratory: positive: No respiratory distress, Breath sounds nml, Other (Mild left lower chest wall tenderness to palpation; No crepitance or rib movement) Peripheral Pulses: positive: 2+ Abdomen: positive: Non-tender, Nml bowel sounds, No distention Skin: positive: Color nml, Warm Extremities: positive: Other (Left forearm with mild tenderness; 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, 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) Neurologic/Psychiatric: positive: Motor nml Conclusion/Plan - Problem List (1) Contusion of left forearm Conclusion/Plan: No fracture; minimal soft tissue injury/Analgesics Qualifiers: Encounter type: initial encounter Qualified Code(s): S50.12XA - Contusion of left forearm, initial encounter (2) Ribs, multiple fractures Conclusion/Plan: Fracture left ribs 9 and 10; No pneumothorax or significant pleural effusion; No slpenic injury; No major issues with respiration at this time/Multimodality pain control Qualifiers: Encounter type: initial encounter Fracture type: closed Laterality: left Qualified Code(s): S22.42XA - Multiple fractures of ribs, left side, initial encounter for closed fracture (3) Accidental fall Conclusion/Plan: Chronic balance issues resulting in GLF/SS, PT, OT to assist with in-patient mobility and plans for out-patient management Qualifiers: Encounter type: initial encounter Qualified Code(s): W19.XXXA - Unspecified fall, initial encounter (4) Contusion of chest wall with intact skin Conclusion/Plan: Blunt injury to left chest wall resulting in rib fractures/Analgesics - Lab Results Lab results reviewed: No Other Lab Results: ED labs pending (2239) - Diagnostic Imaging Results Diagnostic Imaging Results: positive: See rad report Diagnostic Imaging Results Comments: CT chest - Non-displaced fracture left ribs 9,10 (posterior); Minimal left pleural effusion. No left pneumothorax; Spleen intact Left wrist - no fracture Head CT - No acute injury (all images viewed by ga - REX) - EKG Results EKG Interpreted Independently: No EKG Findings: EKG pending (2039)
[2023-03-24 22:40] LABS: BASOPHILS % (AUTO) 0.1 %; EOSINOPHILS % (AUTO) 0.3 %; HCT - HEMATOCRIT 33.3 % (42.0-52.0); HGB - HEMOGLOBIN 10.1 g/dL (14.0-18.0); LYMPHOCYTES # (AUTO) 1.7 10^3/uL (1.5-3.5); LYMPHOCYTES % (AUTO) 11.3 %; MEAN CORPUSCULAR HEMOGLOBIN 30.8 pg (27.0-31.0); MEAN CORPUSCULAR HGB CONC 30.3 g/dL (32.0-36.0); MEAN CORPUSCULAR VOLUME 101.5 fL (80.0-94.0); MEAN PLATELET VOLUME 10.2 fL (7.4-11.4); MONOCYTES # (AUTO) 1.6 10^3/uL (0.0-1.0); MONOCYTES % (AUTO) 10.7 %; NEUTROPHILS # (AUTO) 11.8 10^3/uL (1.5-6.6); NEUTROPHILS % (AUTO) 76.6 %; PLT - PLATELET COUNT 183 10^3/uL (130-450); RED BLOOD COUNT 3.28 10^6/uL (4.70-6.10); RED CELL DISTRIBUTION WIDTH 15.1 % (12.0-15.0); WHITE BLOOD COUNT 15.4 x10^3/uL (4.8-10.8)
[2023-03-24 22:48] LABS: SLIDE REVIEW? Indicated
[2023-03-24 23:08] LABS: PLATELET ESTIMATE, MANUAL NORMAL (130-450,000) (NORMAL); PLATELET MORPHOLOGY NORMAL APPEARANCE (NORMAL)
[2023-03-24 23:10] LABS: WBC MORPHOLOGY (MULTIPLE) 1+ HYPERSEG NEUT (NORMAL)
[2023-03-24] MEDS: ACETAMINOPHEN 325 MG TABLET PO SCH (23:45)
[2023-03-24] MEDS: FINASTERIDE 5 MG TABLET PO SCH (23:45)
[2023-03-24] MEDS: LACTATED RINGERS 1,000 ML IV SCH (23:46)
[2023-03-24] MEDS: LIDOCAINE PATCH 4% TOP SCH (23:46)
[2023-03-25 00:05] LABS: ALBUMIN 3.9 g/dL (3.2-5.5); ALBUMIN/GLOBULIN RATIO 1.3 (1.0-2.2); BILIRUBIN,TOTAL 0.4 mg/dL (0.2-1.0); CALCIUM 9.1 mg/dL (8.5-10.3); TOTAL PROTEIN 6.9 g/dL (6.4-8.9)
[2023-03-25] MEDS: SODIUM CHLORIDE FLUSH 0.9% 10 ML SYRINGE IVP SCH (00:05)
[2023-03-25] MEDS: HYDROmorphone 0.5 MG/0.5 ML SYRINGE IVP PRN (00:05)
[2023-03-25] MEDS: PANTOPRAZOLE 40 MG TABLET PO SCH (06:13)
[2023-03-25] MEDS: oxyCODONE 5 MG TABLET PO PRN (06:22)
--- NOTE | 2023-03-25 06:57 | PROVIDER PROGRESS NOTE ---
Subjective - General Admit Date: 03/24/23 Objective - Patient Data Vital Signs: Vital Signs x48h Temp Pulse Resp BP Pulse Ox 03/25/23 05:19 98.1 F 88 16 156/86 H 96 03/25/23 00:37 97.9 F 90 17 131/92 H 97 Weight: Weight 03/23/23 03/24/23 03/25/23 23:59 23:59 23:59 Weight (kg) 101.605 kg 93.5 kg Intake & Output: Intake and Output Totals x24h 03/23/23 03/24/23 03/25/23 23:59 23:59 23:59 Output Total 175 Balance -175 - Lab Results Lab Results: 03/24/23 22:35 03/24/23 22:35 Other Lab Results: Lab Results x24hrs 03/24/23 03/24/23 Range/Units 22:35 22:35 WBC 15.4 H (4.8-10.8) x10^3/uL RBC 3.28 L (4.70-6.10) 10^6/uL Hgb 10.1 L (14.0-18.0) g/dL Hct 33.3 L (42.0-52.0) % MCV 101.5 H (80.0-94.0) fL MCH 30.8 (27.0-31.0) pg MCHC 30.3 L (32.0-36.0) g/dL RDW 15.1 H (12.0-15.0) % Plt Count 183 (130-450) 10^3/uL MPV 10.2 (7.4-11.4) fL Neut # (Auto) 11.8 H (1.5-6.6) 10^3/uL Lymph # (Auto) 1.7 (1.5-3.5) 10^3/uL Ida # (Auto) 1.6 H (0.0-1.0) 10^3/uL Eos # (Auto) 0.0 (0.0-0.7) 10^3/uL Baso # (Auto) 0.0 (0.0-0.1) 10^3/uL Absolute Nucleated RBC 0.00 x10^3/uL Nucleated RBC % 0.0 /100WBC Manual Slide Review Indicated WBC Morphology 1+ HYPERSEG NEUT (NORMAL) Platelet Estimate NORMAL (130-450,000) (NORMAL) Platelet Morphology NORMAL APPEARANCE (NORMAL) RBC Morph Micro Appear 1+ MACROCYTOSIS (NORMAL) Sodium 139 (135-145) mmol/L Potassium 4.0 (3.5-4.5) mmol/L Chloride 107 (101-111) mmol/L Carbon Dioxide 25 (21-32) mmol/L Anion Gap 7.0 (6-13) BUN 22 H (6-20) mg/dL Creatinine 1.0 (0.6-1.3) mg/dL Estimated GFR (MDRD) 72 L (>89) Glucose 117 H (74-104) mg/dL Calcium 9.1 (8.5-10.3) mg/dL Total Bilirubin 0.4 (0.2-1.0) mg/dL AST 11 (10-42) IU/L ALT 6 L (10-60) IU/L Alkaline Phosphatase 39 L (42-121) IU/L Total Protein 6.9 (6.4-8.9) g/dL Albumin 3.9 (3.2-5.5) g/dL Globulin 3.0 (2.1-4.2) g/dL Albumin/Globulin Ratio 1.3 (1.0-2.2) - Current Medications Current Medications: Current Medications Generic Name Dose Route Start Last Admin Trade Name Freq PRN Reason Stop Dose Admin Acetaminophen 650 mg 03/24/23 23:00 03/25/23 05:05 Acetaminophen 325 Mg Tablet PO 650 mg Q6H JEEVAN Administration Finasteride 5 mg 03/24/23 23:00 03/24/23 23:45 Finasteride 5 Mg Tablet PO 5 mg QPM JEEVAN Administration Hydromorphone HCl 0.5 mg 03/24/23 22:05 03/25/23 00:05 Hydromorphone 0.5 Mg/0.5 Ml Syringe IVP 0.5 mg Q2H PRN Administration Pain 8 to 10 Lactated Ringer's 1,000 mls @ 25 mls/hr 03/24/23 23:00 03/24/23 23:46 Lr IV 25 mls/hr .Q40H JEEVAN Administration Lidocaine 1 patch 03/24/23 23:00 03/24/23 23:46 Lidocaine Patch 4% TOP 1 patch HS JEEVAN Administration Oxycodone HCl 5 mg 03/24/23 22:05 03/25/23 06:22 Oxycodone 5 Mg Tablet PO 5 mg Q4HR PRN Administration Pain 5 to 7 Pantoprazole Sodium 40 mg 03/25/23 07:00 03/25/23 06:13 Pantoprazole 40 Mg Tablet PO 40 mg QDAC JEEVAN Administration Sodium Chloride 10 ml 03/25/23 01:00 03/25/23 00:05 Sodium Chloride Flush 0.9% 10 Ml Syringe IVP 10 ml 0100,0900,1700 JEEVAN Administration Impression/Plan - Problem List Problem List: General Surgery Progress Note - (Rib Fracture Protocol) Assessment: 1) Fracture posterior ribs 9/10 (left) without hemothorax, pneumothorax, splenic injury - Satisfactory pain control 2) Diabetes - stable 3) Depression - stable 4) Atrial fibrillation on Eliquis 5) 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 Change q 12 hrs 2) Acetaminophen and Oxycodone prn (can not use NSAID's) 3) IV Dilaudid as needed 4) IS 5-6 x per hour; Ambulate with assistance 5) Supplemental oxygen as needed 6) Dangle at bedside/ambulate 4-6 x a day 7) Consider epidural catheter (consult anesthesia) if above analgesic measures fail to provide enough relief for adequate pulmonary hygiene 8) Consult Internal Medicine to assist with other medical issues 9) Q6hr glucose <><><><><> S: Comfortable; Pain in posterior left chest with deep inspiration; No coughing; Cooperative O: Physical Examination VS: T 98.1; P 88; BP 156/86; RR 16; O2 sat 96% (RA) BMI: 29.6 GENERAL APPEARANCE: Comfortable; In NAD PSYCHIATRIC: AAO; Cooperative NECK: No crepitus, lymphadenopathy, or thyromegaly LUNGS: Clear to auscultation without wheezing; No use of accessory muscles to breathe; Deep inspiration results in posterior left chest discomfort CHEST WALL: Tenderness left posterior chest wall without crepitus or ecchymosis SKIN: Anicteric; No rashes, lesions, ulcerations Labs Na 139; K 4.0; Bun 22; Cr 1.0; Glu 117 WBC 15.4; Hgb 10.1; Hct 33.3; Plt 183k Imaging None today EKG Atrial fibrillation Jaspal Frazier MD, FACS General Surgery [phone]
[2023-03-25] MEDS: APIXABAN 5 MG TABLET PO SCH (08:09)
[2023-03-25] MEDS: METOPROLOL SUCCINATE 25 MG TABLET PO SCH (08:09)
[2023-03-25] MEDS: LOSARTAN 50 MG TABLET PO SCH (08:09)
[2023-03-25] MEDS: DULoxetine 30 MG CAPSULE PO SCH (08:09)
[2023-03-25] MEDS: FERROUS SULFATE 325 MG TABLET PO SCH (08:09)
[2023-03-25] MEDS: CHOLECALCIFEROL 400 UNIT TABLET PO SCH (08:10)
[2023-03-25] MEDS: LORATADINE 10 MG TABLET PO SCH (08:10)
[2023-03-25] MEDS: ATORVASTATIN 40 MG TABLET PO SCH (08:10)
[2023-03-25] MEDS: metFORMIN 500 MG TABLET PO SCH (08:22)
--- NOTE | 2023-03-25 08:51 | PHARMACY PROGRESS NOTE ---
- Best Possible Medication History Admit Date and Time: 03/24/232205 Processed by: Nursing As the person ultimately responsible for medication therapy, providers are able to order a medication from an existing home medication list in [facility] via the "Reconcile Routine" prior to Confirmation of that medication by program support clerk. Such practice is discouraged except when the physician, in their clinical judgment, deems that a medical need exists for a medication without regard to previous use.
--- NOTE | 2023-03-25 17:09 | CONSULTATION NOTE ---
Referring Provider Name of Referring Provider:: Jaspal Frazier MD Consult Date: 03/25/23 Chief Complaint - Chief Complaint Chief Complaint: Chest Pain History of Present Illness - Admitted From Admitted From:: Emergency Room - History Obtained From Records Reviewed: Yes History obtained from: Patient and family at bedside - History of Present Illness HPI Comment/Other: Pawel Hernández is an 82Who was admitted to the surgery service after a fall at home. Patient lost his balance while walking on his deck. He fell and struck his left arm and left chest. His family reports he is fallen approximately 3 times in the last several months. He does not use a walker. CT scan of the head revealed no evidence of intracranial hemorrhage. CT scan of the chest revealed a left nondisplaced ninth and 10th rib fracture without pneumothorax. Patient is alert and reports he continues to have significant pain with movement. He denies fever, chills, abdominal pain and shortness of breath. History - Past Medical History Cardiovascular: reports: Hypertension, High cholesterol, Atrial fibrillation Respiratory: reports: None Neuro: reports: None Endocrine/Autoimmune: reports: Type 2 diabetes GI: reports: None : reports: Benign prostate hypertrophy HEENT: reports: None Psych: reports: Depression Musculoskeletal: reports: None Derm: reports: None MRSA Hx?: No - Past Surgical History Ortho: reports: Amputation Derm: reports: Skin cancer surgery - Family & Social History Living arrangement: At home Living Situation: With spouse/s.o., With family - Substance History Use: Uses substance without health or social issues: NONE Abuse: Recurrent use of substance despite neg consequences: NONE Dependence: Experiences withdrawal or developed tolerances: NONE - POLST Patient has POLST: No Meds/Allgy - Home Medications Home Medications: Ambulatory Orders Medication Instructions Recorded Confirmed Atorvastatin Calcium [Lipitor] 80 mg PO DAILY 02/13/22 03/24/23 Cholecalciferol [Vitamin D3] 2,000 unit PO DAILY 02/13/22 03/24/23 Doxazosin Mesylate [Cardura] 2 mg PO DAILY PM 02/13/22 03/24/23 Empagliflozin [Jardiance] 12.5 mg PO DAILY 02/13/22 03/24/23 Finasteride [Proscar] 5 mg PO DAILY PM 02/13/22 03/24/23 Loratadine [Claritin] 10 mg PO DAILY 02/13/22 03/24/23 Losartan [Cozaar] 50 mg PO DAILY 02/13/22 03/24/23 Metoprolol Succinate [Toprol Xl] 12.5 mg PO DAILY 02/13/22 03/24/23 Omeprazole 20 mg PO QDBREAKFAST 02/13/22 03/24/23 amLODIPine [Norvasc] 5 mg PO DAILY PM 02/13/22 03/24/23 metFORMIN [Glucophage] 1,000 mg PO BID 02/13/22 03/24/23 Apixaban [Eliquis] 5 mg ORAL BID 03/24/23 03/24/23 - Allergies Allergies/Adverse Reactions: Allergies Allergy/AdvReac Type Severity Reaction Status Date / Time No Known Drug Allergies Allergy Verified 01/16/23 23:14 Exam - Vital Signs Vital Signs: Vital Signs x48h Temp Pulse Resp BP Pulse Ox O2 Flow Rate 03/25/23 15:46 36.7 C 70 18 157/88 H 96 03/25/23 12:11 36.4 C L 68 20 141/87 H 94 - Physical Exam General Appearance: positive: No acute distress, Alert Eyes Bilateral: positive: Normal inspection, Conjunctivae nml Neck: positive: Nml inspection, No JVD, Trachea midline Respiratory: positive: Other (Good air exchange in all lung [place] no wheezing no crackles) Cardiovascular: positive: Other (Positive S1-S2 no extra heart sounds) Abdomen: positive: Non-tender, No organomegaly, Nml bowel sounds, No distention Neurologic/Psychiatric: positive: Oriented x3 Conclusion/Plan - Problem List (1) Ribs, multiple fractures Conclusion/Plan: Agree with pain control with narcotics and being conservative with NSAIDs given the fact the patient is on apixaban. Recommendations: PT/OT to see patient as well as social work. Patient appears to have a good family structure at home but is refusing to use a walker.Plan to educate patient with regard to the use of walker. Encourage use of incentive spirometer. (2) Hypertension Plan: Continue metoprolol and losartan. (3) Atrial Fibrillation Plan: Continue apixaban Continue metoprolol for rate control. (4) Diabetes Mellitus Plan: Continue metformin 1000 mg twice daily Qualifiers: Encounter type: initial encounter Fracture type: closed Laterality: left Qualified Code(s): S22.42XA - Multiple fractures of ribs, left side, initial encounter for closed fracture - Lab Results Lab results reviewed: No Fish Bones: 03/24/23 22:35 03/24/23 22:35
[2023-03-25] MEDS: DOXAZOSIN 1 MG TABLET PO SCH (21:23)
--- NOTE | 2023-03-26 10:33 | PROVIDER PROGRESS NOTE ---
Subjective - General Admit Date: 03/24/23 - Other Other Information/Narrative: Patient states his pain is controlled. His chief complaint at the time of my visit is that he needs Objective - Patient Data Reviewed Vital Signs: Yes Vital Signs: Vital Signs x48h Temp Pulse Resp BP Pulse Ox 03/26/23 10:29 73 152/86 H 94 03/26/23 09:00 65 30 H 159/80 H 97 03/26/23 07:48 36.5 C 76 14 161/101 H 97 03/26/23 05:29 36.3 C L 75 16 144/81 H 96 Weight: Weight 03/24/23 03/25/23 03/26/23 23:59 23:59 23:59 Weight (kg) 101.605 kg 93.5 kg Intake & Output: Intake and Output Totals x24h 03/24/23 03/25/23 03/26/23 23:59 23:59 23:59 Intake Total 960 360 Output Total 175 100 Balance 785 260 - Lab Results Lab Results: 03/24/23 22:35 03/24/23 22:35 Other Lab Results: Lab Results x24hrs 03/26/23 03/25/23 03/25/23 Range/Units 07:42 21:05 15:54 POC Whole Bld Glucose 112 H 97 103 H (70 - 100) mg/dL 03/25/23 Range/Units 12:08 POC Whole Bld Glucose 109 H (70 - 100) mg/dL - Current Medications Current Medications: Current Medications Generic Name Dose Route Start Last Admin Trade Name Freq PRN Reason Stop Dose Admin Acetaminophen 650 mg 03/24/23 23:00 03/26/23 05:29 Acetaminophen 325 Mg Tablet PO 650 mg Q6H JEEVAN Administration Apixaban 5 mg 03/25/23 09:00 03/26/23 08:36 Apixaban 5 Mg Tablet PO 5 mg BID JEEVAN Administration Atorvastatin Calcium 80 mg 03/25/23 09:00 03/26/23 08:35 Atorvastatin 40 Mg Tablet PO 80 mg DAILY JEEVAN Administration Cholecalciferol 2,000 unit 03/25/23 09:00 03/26/23 08:35 Cholecalciferol 400 Unit Tablet PO 2,000 unit DAILY JEEVAN Administration Doxazosin Mesylate 2 mg 03/25/23 21:00 03/25/23 21:23 Doxazosin 1 Mg Tablet PO 2 mg QPM JEEVAN Administration Duloxetine HCl 30 mg 03/25/23 09:00 03/26/23 08:35 Duloxetine 30 Mg Capsule PO 30 mg BID JEEVAN Administration Ferrous Sulfate 325 mg 03/25/23 08:00 03/26/23 08:35 Ferrous Sulfate 325 Mg Tablet PO 325 mg DAILYWM JEEVAN Administration Finasteride 5 mg 03/24/23 23:00 03/25/23 21:23 Finasteride 5 Mg Tablet PO 5 mg QPM JEEVAN Administration Hydromorphone HCl 0.5 mg 03/24/23 22:05 03/26/23 09:22 Hydromorphone 0.5 Mg/0.5 Ml Syringe IVP 0.5 mg Q2H PRN Administration Pain 8 to 10 Lidocaine 1 patch 03/24/23 23:00 03/25/23 21:24 Lidocaine Patch 4% TOP Not Given HS [facility] Loratadine 10 mg 03/25/23 09:00 03/26/23 08:36 Loratadine 10 Mg Tablet PO 10 mg DAILY JEEVAN Administration Losartan Potassium 50 mg 03/25/23 09:00 03/26/23 08:36 Losartan 50 Mg Tablet PO 50 mg DAILY JEEVAN Administration Metformin HCl 1,000 mg 03/25/23 09:00 03/26/23 08:45 Metformin 500 Mg Tablet PO 1,000 mg BIDWM JEEVAN Administration Metoprolol Succinate 12.5 mg 03/25/23 09:00 03/26/23 08:36 Metoprolol Succinate 25 Mg Tablet PO 12.5 mg DAILY JEEVAN Administration Oxycodone HCl 5 mg 03/24/23 22:05 03/26/23 08:35 Oxycodone 5 Mg Tablet PO 5 mg Q4HR PRN Administration Pain 5 to 7 Pantoprazole Sodium 40 mg 03/25/23 07:00 03/26/23 06:02 Pantoprazole 40 Mg Tablet PO 40 mg QDAC [facility] Administration Empagliflozin [ 1 each 03/25/23 09:00 03/25/23 08:23 Jardiance] 25 Mg PO Not Given Tablet DAILY [facility] Sodium Chloride 10 ml 03/25/23 01:00 03/26/23 08:36 Sodium Chloride Flush 0.9% 10 Ml Syringe IVP 10 ml 0100,0900,1700 [facility] Administration - Physical Exam General Appearance: positive: No acute distress, Alert ENT: positive: No signs of dehydration Neck: positive: Nml inspection Respiratory: positive: No respiratory distress, Other (on RA) Cardiovascular: positive: Regular rate & rhythm Abdomen: positive: Non-tender Skin: positive: No rash Extremities: positive: Full ROM Neurologic/Psychiatric: positive: Oriented x3 Impression/Plan - Problem List Problem List: 82 y/o M s/p GLF with: 1. Left posterior rib 9, 10 fx - no hemothorax, no pneumothorax, no splenic injury - pain controlled with multimodal approach, will work to minimize need for IV meds today. Increased oxycodone to 7.5mg po q4h, lengthened time on hydromorphone to q4h, encouraged PO pain meds first. - encouraged IS use - will increase activity today 2. Depression, diabetes, atrial fibrillation, chronic anemia - appreciate medicine consultation to help manage chronic medical problems 3. progressive frailty - refuses to use home walker (prior to this hospital stay) - PT/OT ordered - SW ordered Plan to discharge when pain controlled with PO meds, safe discharge plan in place. Patient changed to inpatient status today.
[2023-03-26] MEDS: CYANOCOBALAMIN 500 MCG TABLET PO SCH (13:21)
[2023-03-26] MEDS: oxyCODONE 5 MG TABLET PO PRN (13:21)
[2023-03-26] MEDS: HYDROmorphone 0.5 MG/0.5 ML SYRINGE IVP PRN (15:58)
--- NOTE | 2023-03-26 20:39 | PROVIDER PROGRESS NOTE ---
Assessment/Plan - Problem List (1) Ribs, multiple fractures Qualifiers: Encounter type: initial encounter Fracture type: closed Laterality: left Qualified Code(s): S22.42XA - Multiple fractures of ribs, left side, initial e ncounter for closed fracture Assessment/Plan: Agree with pain control with narcotics and being conservative with NSAIDs given the fact the patient is on apixaban. Recommendations: PT/OT to see patient as well as social work. Patient appears to have a good family structure at home but is refusing to use a walker.Plan to educate patient with regard to the use of walker. Encourage use of incentive spirometer. (2) Hypertension Plan: Continue metoprolol and losartan. (3) Atrial Fibrillation Plan: Continue apixaban Continue metoprolol for rate control. (4) Diabetes Mellitus Plan: Continue metformin 1000 mg twice daily - Current Meds Current Meds: Current Medications Generic Name Dose Route Start Last Admin Trade Name Freq PRN Reason Stop Dose Admin Acetaminophen 650 mg 03/24/23 23:00 03/26/23 18:03 Acetaminophen 325 Mg Tablet PO 650 mg Q6H JEEVAN Administration Apixaban 5 mg 03/25/23 09:00 03/26/23 08:36 Apixaban 5 Mg Tablet PO 5 mg BID JEEVAN Administration Atorvastatin Calcium 80 mg 03/25/23 09:00 03/26/23 08:35 Atorvastatin 40 Mg Tablet PO 80 mg DAILY JEEVAN Administration Cholecalciferol 2,000 unit 03/25/23 09:00 03/26/23 08:35 Cholecalciferol 400 Unit Tablet PO 2,000 unit DAILY JEEVAN Administration Cyanocobalamin 500 mcg 03/26/23 11:00 03/26/23 13:21 Cyanocobalamin 500 Mcg Tablet PO 500 mcg DAILY JEEVAN Administration Doxazosin Mesylate 2 mg 03/25/23 21:00 03/25/23 21:23 Doxazosin 1 Mg Tablet PO 2 mg QPM JEEVAN Administration Duloxetine HCl 30 mg 03/25/23 09:00 03/26/23 08:35 Duloxetine 30 Mg Capsule PO 30 mg BID JEEVAN Administration Ferrous Sulfate 325 mg 03/25/23 08:00 03/26/23 08:35 Ferrous Sulfate 325 Mg Tablet PO 325 mg DAILYWM JEEVAN Administration Finasteride 5 mg 03/24/23 23:00 03/25/23 21:23 Finasteride 5 Mg Tablet PO 5 mg QPM JEEVAN Administration Hydromorphone HCl 0.5 mg 03/26/23 12:54 03/26/23 15:58 Hydromorphone 0.5 Mg/0.5 Ml Syringe IVP 0.5 mg Q4H PRN Administration breakthough pain Lidocaine 1 patch 03/24/23 23:00 03/25/23 21:24 Lidocaine Patch 4% TOP Not Given HS [facility] Loratadine 10 mg 03/25/23 09:00 03/26/23 08:36 Loratadine 10 Mg Tablet PO 10 mg DAILY JEEVAN Administration Losartan Potassium 50 mg 03/25/23 09:00 03/26/23 08:36 Losartan 50 Mg Tablet PO 50 mg DAILY JEEVAN Administration Metformin HCl 1,000 mg 03/25/23 09:00 03/26/23 18:03 Metformin 500 Mg Tablet PO 1,000 mg BIDWM JEEVAN Administration Metoprolol Succinate 12.5 mg 03/25/23 09:00 03/26/23 08:36 Metoprolol Succinate 25 Mg Tablet PO 12.5 mg DAILY JEEVAN Administration Oxycodone HCl 7.5 mg 03/26/23 12:53 03/26/23 19:00 Oxycodone 5 Mg Tablet PO 7.5 mg Q4HR PRN Administration Moderate Pain (Level 4-6) Pantoprazole Sodium 40 mg 03/25/23 07:00 03/26/23 06:02 Pantoprazole 40 Mg Tablet PO 40 mg QDAC [facility] Administration Empagliflozin [ 1 each 03/25/23 09:00 03/26/23 11:30 Jardiance] 25 Mg PO Not Given Tablet DAILY [facility] Sodium Chloride 10 ml 03/25/23 01:00 03/26/23 18:04 Sodium Chloride Flush 0.9% 10 Ml Syringe IVP 10 ml 0100,0900,1700 JEEVAN Administration - Lab Result Fish Bone Diagrams: 03/24/23 22:35 03/24/23 22:35 Subjective - Subjective Patient Reports: Other (Alert. Continues to have intermittent episodes of pain related to his rib fractures) Objective Vital Signs: Vital Signs - 24 hr 03/25/23 03/26/23 03/26/23 21:00 00:01 05:29 Temperature 36.5 C 36.4 C L 36.3 C L Heart Rate [ 60 67 75 Brachial] Respiratory 16 16 16 Rate Blood Pressure 135/86 H 136/73 H 144/81 H [Right Brachial artery] O2 Saturation 97 94 96 03/26/23 03/26/23 03/26/23 07:48 09:00 10:29 Temperature 36.5 C Heart Rate [ 76 65 73 Brachial] Respiratory 14 30 H Rate Blood Pressure 161/101 H 159/80 H 152/86 H [Right Brachial artery] O2 Saturation 97 97 94 03/26/23 03/26/23 11:14 15:53 Temperature 36.5 C 36.5 C Heart Rate [ 68 67 Brachial] Respiratory 16 18 Rate Blood Pressure 154/78 H 137/68 H [Right Brachial artery] O2 Saturation 95 97 Oxygen O2 Source Room air I&O (Last 24 Hrs): Intake and Output Totals x24h 03/24/23 03/25/23 03/26/23 23:59 23:59 23:59 Intake Total 960 460 Output Total 175 100 Balance 785 360 General: Alert, Oriented x3 HEENT: Atraumatic, PERRLA Neck: Supple, No JVD, No thyromegaly Neuro: Alert, Non Focal Cardiovascular: Regular rate, Normal S1, Normal S2 Respiratory: No respiratory distress, Breath sounds nml Abdomen: Normal bowel sounds, Soft, No tenderness Skin: No rashes - Results Results: Laboratory Results WBC 15.4 x10^3/uL (4.8-10.8) H 03/24/23 22:35 RBC 3.28 10^6/uL (4.70-6.10) L 03/24/23 22:35 Hgb 10.1 g/dL (14.0-18.0) L 03/24/23 22:35 Hct 33.3 % (42.0-52.0) L 03/24/23 22:35 MCV 101.5 fL (80.0-94.0) H 03/24/23 22:35 MCH 30.8 pg (27.0-31.0) 03/24/23 22:35 MCHC 30.3 g/dL (32.0-36.0) L 03/24/23 22:35 RDW 15.1 % (12.0-15.0) H 03/24/23 22:35 Plt Count 183 10^3/uL (130-450) 03/24/23 22:35 MPV 10.2 fL (7.4-11.4) 03/24/23 22:35 Neut # (Auto) 11.8 10^3/uL (1.5-6.6) H 03/24/23 22:35 Lymph # (Auto) 1.7 10^3/uL (1.5-3.5) 03/24/23 22:35 [place] # (Auto) 1.6 10^3/uL (0.0-1.0) H 03/24/23 22:35 Eos # (Auto) 0.0 10^3/uL (0.0-0.7) 03/24/23 22:35 Baso # (Auto) 0.0 10^3/uL (0.0-0.1) 03/24/23 22:35 Absolute Nucleated RBC 0.00 x10^3/uL 03/24/23 22:35 Nucleated RBC % 0.0 /100WBC 03/24/23 22:35 Manual Slide Review Indicated 03/24/23 22:35 WBC Morphology 1+ HYPERSEG NEUT (NORMAL) 03/24/23 22:35 Platelet Estimate NORMAL (130-450,000) (NORMAL) 03/24/23 22:35 Platelet Morphology NORMAL APPEARANCE (NORMAL) 03/24/23 22:35 RBC Morph Micro Appear 2+ ANISOCYTOSIS (NORMAL) 1+ MACROCYTOSIS (NORMAL) 03/24/23 22:35 RBC Morph Micro Appear 2+ ANISOCYTOSIS (NORMAL) 1+ MACROCYTOSIS (NORMAL) 0 03/24/23 22:35 Sodium 139 mmol/L (135-145) 03/24/23 22:35 Potassium 4.0 mmol/L (3.5-4.5) 03/24/23 22:35 Chloride 107 mmol/L (101-111) 03/24/23 22:35 Carbon Dioxide 25 mmol/L (21-32) 03/24/23 22:35 Anion Gap 7.0 (6-13) 03/24/23 22:35 BUN 22 mg/dL (6-20) H 03/24/23 22:35 Creatinine 1.0 mg/dL (0.6-1.3) 03/24/23 22:35 Estimated GFR (MDRD) 72 (>89) L 03/24/23 22:35 Glucose 117 mg/dL (74-104) H 03/24/23 22:35 POC Whole Bld Glucose 133 mg/dL (70 - 100) H 03/26/23 17:06 Calcium 9.1 mg/dL (8.5-10.3) 03/24/23 22:35 Total Bilirubin 0.4 mg/dL (0.2-1.0) 03/24/23 22:35 AST 11 IU/L (10-42) 03/24/23 22:35 ALT 6 IU/L (10-60) L 03/24/23 22:35 Alkaline Phosphatase 39 IU/L (42-121) L 03/24/23 22:35 Total Protein 6.9 g/dL (6.4-8.9) 03/24/23 22:35 Albumin 3.9 g/dL (3.2-5.5) 03/24/23 22:35 Globulin 3.0 g/dL (2.1-4.2) 03/24/23 22:35 Albumin/Globulin Ratio 1.3 (1.0-2.2) 03/24/23 22:35 Current Medications - Current Medications Current Medications: Active Medications Acetaminophen (Acetaminophen 325 Mg Tablet) 650 mg PO Q6H [facility] Last Admin: 03/26/23 18:03 Dose: 650 mg Apixaban (Apixaban 5 Mg Tablet) 5 mg PO BID [facility] Last Admin: 03/26/23 08:36 Dose: 5 mg Atorvastatin Calcium (Atorvastatin 40 Mg Tablet) 80 mg PO DAILY [facility] Last Admin: 03/26/23 08:35 Dose: 80 mg Cholecalciferol (Cholecalciferol 400 Unit Tablet) 2,000 unit PO DAILY [facility] Last Admin: 03/26/23 08:35 Dose: 2,000 unit Cyanocobalamin (Cyanocobalamin 500 Mcg Tablet) 500 mcg PO DAILY [facility] Last Admin: 03/26/23 13:21 Dose: 500 mcg Doxazosin Mesylate (Doxazosin 1 Mg Tablet) 2 mg PO QPM [facility] Last Admin: 03/25/23 21:23 Dose: 2 mg Duloxetine HCl (Duloxetine 30 Mg Capsule) 30 mg PO BID [facility] Last Admin: 03/26/23 08:35 Dose: 30 mg Ferrous Sulfate (Ferrous Sulfate 325 Mg Tablet) 325 mg PO DAILYWM [facility] Last Admin: 03/26/23 08:35 Dose: 325 mg Finasteride (Finasteride 5 Mg Tablet) 5 mg PO QPM [facility] Last Admin: 03/25/23 21:23 Dose: 5 mg Hydromorphone HCl (Hydromorphone 0.5 Mg/0.5 Ml Syringe) 0.5 mg IVP Q4H PRN PRN Reason: breakthough pain Last Admin: 03/26/23 15:58 Dose: 0.5 mg Lidocaine (Lidocaine Patch 4%) 1 patch TOP HS [facility] Last Admin: 03/25/23 21:24 Dose: Not Given Loratadine (Loratadine 10 Mg Tablet) 10 mg PO DAILY [facility] Last Admin: 03/26/23 08:36 Dose: 10 mg Losartan Potassium (Losartan 50 Mg Tablet) 50 mg PO DAILY [facility] Last Admin: 03/26/23 08:36 Dose: 50 mg Metformin HCl (Metformin 500 Mg Tablet) 1,000 mg PO BIDWM [facility] Last Admin: 03/26/23 18:03 Dose: 1,000 mg Metoprolol Succinate (Metoprolol Succinate 25 Mg Tablet) 12.5 mg PO DAILY [facility] Last Admin: 03/26/23 08:36 Dose: 12.5 mg Ondansetron HCl (Ondansetron 4 Mg/2 Ml Vial) 4 mg IVP Q6HR PRN PRN Reason: Nausea / Vomiting Oxycodone HCl (Oxycodone 5 Mg Tablet) 7.5 mg PO Q4HR PRN PRN Reason: Moderate Pain (Level 4-6) Last Admin: 03/26/23 19:00 Dose: 7.5 mg Pantoprazole Sodium (Pantoprazole 40 Mg Tablet) 40 mg PO QDAC [facility] Last Admin: 03/26/23 06:02 Dose: 40 mg Empagliflozin [ Jardiance] 25 Mg Tablet 1 each PO DAILY [facility] Last Admin: 03/26/23 11:30 Dose: Not Given Sodium Chloride (Sodium Chloride Flush 0.9% 10 Ml Syringe) 10 ml IVP PRN PRN PRN Reason: NEEDED PER PROVIDER ORDERS Sodium Chloride (Sodium Chloride Flush 0.9% 10 Ml Syringe) 10 ml IVP 0100,0900,1700 [facility] Last Admin: 03/26/23 18:04 Dose: 10 ml Atorvastatin Calcium [Lipitor] 80 mg PO DAILY 02/13/22 Cholecalciferol [Vitamin D3] 2,000 unit PO DAILY 02/13/22 Doxazosin Mesylate [Cardura] 2 mg PO DAILY PM 02/13/22 Empagliflozin [Jardiance] 12.5 mg PO DAILY 02/13/22 Finasteride [Proscar] 5 mg PO DAILY PM 02/13/22 Loratadine [Claritin] 10 mg PO DAILY 02/13/22 Losartan [Cozaar] 50 mg PO DAILY 02/13/22 Metoprolol Succinate [Toprol Xl] 12.5 mg PO DAILY 02/13/22 Omeprazole 20 mg PO QDBREAKFAST 02/13/22 amLODIPine [Norvasc] 5 mg PO DAILY PM 02/13/22 metFORMIN [Glucophage] 1,000 mg PO BID 02/13/22 Apixaban [Eliquis] 5 mg ORAL BID 03/24/23
[2023-03-27 06:18] LABS: BASOPHILS % (AUTO) 0.2 %; EOSINOPHILS % (AUTO) 0.1 %; HCT - HEMATOCRIT 32.5 % (42.0-52.0); HGB - HEMOGLOBIN 10.2 g/dL (14.0-18.0); LYMPHOCYTES # (AUTO) 1.6 10^3/uL (1.5-3.5); LYMPHOCYTES % (AUTO) 18.9 %; MEAN CORPUSCULAR HEMOGLOBIN 30.8 pg (27.0-31.0); MEAN CORPUSCULAR HGB CONC 31.4 g/dL (32.0-36.0); MEAN CORPUSCULAR VOLUME 98.2 fL (80.0-94.0); MEAN PLATELET VOLUME 10.2 fL (7.4-11.4); MONOCYTES # (AUTO) 1.4 10^3/uL (0.0-1.0); MONOCYTES % (AUTO) 16.8 %; NEUTROPHILS # (AUTO) 5.4 10^3/uL (1.5-6.6); NEUTROPHILS % (AUTO) 63.4 %; PLT - PLATELET COUNT 175 10^3/uL (130-450); RED BLOOD COUNT 3.31 10^6/uL (4.70-6.10); RED CELL DISTRIBUTION WIDTH 14.8 % (12.0-15.0); WHITE BLOOD COUNT 8.5 x10^3/uL (4.8-10.8)
[2023-03-27 06:33] LABS: CALCIUM 9.2 mg/dL (8.5-10.3); CREATININE 0.9 mg/dL (0.6-1.3); MAGNESIUM 1.3 mg/dL (1.7-2.3); PHOSPHORUS 3.8 mg/dL (2.5-5.0); POTASSIUM 3.8 mmol/L (3.5-4.5)
--- NOTE | 2023-03-27 07:33 | PROVIDER PROGRESS NOTE ---
Subjective - General Admit Date: 03/26/23 - Other Other Information/Narrative: Pain present but controlled this AM. Patient eating breakfast. Patient states he is onery and likes to give people "a hard time." He has to be asked the same question multiple times before giving an answer, joking several times prior. After explaining the importance of giving truthful answers to questions about what day/time it is and how well he can get around, the patient continues to give "joking" answers. He does want to go home. Objective - Patient Data Reviewed Vital Signs: Yes Vital Signs: Vital Signs x48h Temp Pulse Resp BP Pulse Ox 03/27/23 00:01 36.6 C 68 18 136/81 H 95 Weight: Weight 03/25/23 03/26/23 03/27/23 23:59 23:59 23:59 Weight (kg) 93.5 kg Intake & Output: Intake and Output Totals x24h 03/25/23 03/26/23 03/27/23 23:59 23:59 23:59 Intake Total 960 700 Output Total 175 100 Balance 785 600 - Lab Results Lab Results: 03/27/23 05:41 03/27/23 05:41 Other Lab Results: Lab Results x24hrs 03/27/23 03/27/23 03/26/23 Range/Units 05:41 05:41 20:59 WBC 8.5 (4.8-10.8) x10^3/uL RBC 3.31 L (4.70-6.10) 10^6/uL Hgb 10.2 L (14.0-18.0) g/dL Hct 32.5 L (42.0-52.0) % MCV 98.2 H (80.0-94.0) fL MCH 30.8 (27.0-31.0) pg MCHC 31.4 L (32.0-36.0) g/dL RDW 14.8 (12.0-15.0) % Plt Count 175 (130-450) 10^3/uL MPV 10.2 (7.4-11.4) fL Neut # (Auto) 5.4 (1.5-6.6) 10^3/uL Lymph # (Auto) 1.6 (1.5-3.5) 10^3/uL [place] # (Auto) 1.4 H (0.0-1.0) 10^3/uL Eos # (Auto) 0.0 (0.0-0.7) 10^3/uL Baso # (Auto) 0.0 (0.0-0.1) 10^3/uL Absolute Nucleated RBC 0.00 x10^3/uL Nucleated RBC % 0.0 /100WBC Sodium 137 (135-145) mmol/L Potassium 3.8 (3.5-4.5) mmol/L Chloride 103 (101-111) mmol/L Carbon Dioxide 26 (21-32) mmol/L Anion Gap 8.0 (6-13) BUN 21 H (6-20) mg/dL Creatinine 0.9 (0.6-1.3) mg/dL Estimated GFR (MDRD) 81 L (>89) Glucose 126 H (74-104) mg/dL POC Whole Bld Glucose 132 H (70 - 100) mg/dL Calcium 9.2 (8.5-10.3) mg/dL Phosphorus 3.8 (2.5-5.0) mg/dL Magnesium 1.3 L (1.7-2.3) mg/dL 03/26/23 03/26/23 Range/Units 17:06 07:42 WBC (4.8-10.8) x10^3/uL RBC (4.70-6.10) 10^6/uL Hgb (14.0-18.0) g/dL Hct (42.0-52.0) % MCV (80.0-94.0) fL MCH (27.0-31.0) pg MCHC (32.0-36.0) g/dL RDW (12.0-15.0) % Plt Count (130-450) 10^3/uL MPV (7.4-11.4) fL Neut # (Auto) (1.5-6.6) 10^3/uL Lymph # (Auto) (1.5-3.5) 10^3/uL [place] # (Auto) (0.0-1.0) 10^3/uL Eos # (Auto) (0.0-0.7) 10^3/uL Baso # (Auto) (0.0-0.1) 10^3/uL Absolute Nucleated RBC x10^3/uL Nucleated RBC % /100WBC Sodium (135-145) mmol/L Potassium (3.5-4.5) mmol/L Chloride (101-111) mmol/L Carbon Dioxide (21-32) mmol/L Anion Gap (6-13) BUN (6-20) mg/dL Creatinine (0.6-1.3) mg/dL Estimated GFR (MDRD) (>89) Glucose (74-104) mg/dL POC Whole Bld Glucose 133 H 112 H (70 - 100) mg/dL Calcium (8.5-10.3) mg/dL Phosphorus (2.5-5.0) mg/dL Magnesium (1.7-2.3) mg/dL - Current Medications Current Medications: Current Medications Generic Name Dose Route Start Last Admin Trade Name Freq PRN Reason Stop Dose Admin Acetaminophen 650 mg 03/24/23 23:00 03/26/23 23:13 Acetaminophen 325 Mg Tablet PO 650 mg Q6H JEEVAN Administration Apixaban 5 mg 03/25/23 09:00 03/26/23 20:59 Apixaban 5 Mg Tablet PO 5 mg BID JEEVAN Administration Atorvastatin Calcium 80 mg 03/25/23 09:00 03/26/23 08:35 Atorvastatin 40 Mg Tablet PO 80 mg DAILY JEEVAN Administration Cholecalciferol 2,000 unit 03/25/23 09:00 03/26/23 08:35 Cholecalciferol 400 Unit Tablet PO 2,000 unit DAILY JEEVAN Administration Cyanocobalamin 500 mcg 03/26/23 11:00 03/26/23 13:21 Cyanocobalamin 500 Mcg Tablet PO 500 mcg DAILY JEEVAN Administration Doxazosin Mesylate 2 mg 03/25/23 21:00 03/26/23 20:59 Doxazosin 1 Mg Tablet PO 2 mg QPM JEEVAN Administration Duloxetine HCl 30 mg 03/25/23 09:00 03/26/23 20:59 Duloxetine 30 Mg Capsule PO 30 mg BID JEEVAN Administration Ferrous Sulfate 325 mg 03/25/23 08:00 03/26/23 08:35 Ferrous Sulfate 325 Mg Tablet PO 325 mg DAILYWM JEEVAN Administration Finasteride 5 mg 03/24/23 23:00 03/26/23 20:59 Finasteride 5 Mg Tablet PO 5 mg QPM JEEVAN Administration Lidocaine 1 patch 03/24/23 23:00 03/26/23 20:59 Lidocaine Patch 4% TOP 1 patch HS JEEVAN Administration Loratadine 10 mg 03/25/23 09:00 03/26/23 08:36 Loratadine 10 Mg Tablet PO 10 mg DAILY JEEVAN Administration Losartan Potassium 50 mg 03/25/23 09:00 03/26/23 08:36 Losartan 50 Mg Tablet PO 50 mg DAILY JEEVAN Administration Metformin HCl 1,000 mg 03/25/23 09:00 03/26/23 18:03 Metformin 500 Mg Tablet PO 1,000 mg BIDWM JEEVAN Administration Metoprolol Succinate 12.5 mg 03/25/23 09:00 03/26/23 08:36 Metoprolol Succinate 25 Mg Tablet PO 12.5 mg DAILY JEEVAN Administration Oxycodone HCl 7.5 mg 03/26/23 12:53 03/26/23 23:13 Oxycodone 5 Mg Tablet PO 7.5 mg Q4HR PRN Administration Moderate Pain (Level 4-6) Pantoprazole Sodium 40 mg 03/25/23 07:00 03/26/23 06:02 Pantoprazole 40 Mg Tablet PO 40 mg QDAC JEEVAN Administration Empagliflozin [ 1 each 03/25/23 09:00 03/26/23 11:30 Jardiance] 25 Mg PO Not Given Tablet DAILY [facility] Sodium Chloride 10 ml 03/25/23 01:00 03/27/23 03:06 Sodium Chloride Flush 0.9% 10 Ml Syringe IVP 10 ml 0100,0900,1700 [facility] Administration - Physical Exam General Appearance: positive: No acute distress, Alert Eyes Bilateral: positive: PERRL, EOMI ENT: positive: No signs of dehydration Neck: positive: Trachea midline Respiratory: positive: No respiratory distress Cardiovascular: positive: Regular rate & rhythm Abdomen: positive: Non-tender, No distention. negative: Guarding, Rebound Skin: positive: No rash Extremities: positive: Full ROM Neurologic/Psychiatric: positive: Oriented x3 Impression/Plan - Problem List Problem List: 82 y/o M s/p GLF with: 1. Left posterior rib 9, 10 fx - no hemothorax, no pneumothorax, no splenic injury - at the time of my visit, pain controlled with multimodal approach, will d/c IV meds today. Increased oxycodone to 7.5mg po q4h on 2/5, encourage non narcotic pain med use first - encouraged IS use - will increase activity today, PT/OT eval pending. I do not trust the patient's responses to my questioning about how well he gets around at home, and need guidance from these teams to determine a safe discharge plan for MR. Hernández. 2. Depression, diabetes, atrial fibrillation, chronic anemia, HTN - appreciate medicine consultation to help manage chronic medical problems 3. progressive frailty - refuses to use home walker (prior to this hospital stay) - PT/OT ordered - SW ordered Plan to discharge when pain controlled with PO meds, safe discharge plan in place. Patient currently inpatient on med/surg.
[2023-03-27] MEDS: MAGNESIUM SULFATE 2 GRAM 2 GM/50 ML BAG IV ONE (09:32)
[2023-03-27] MEDS: CYCLOBENZAPRINE 10 MG TABLET PO PRN (13:20)
--- NOTE | 2023-03-27 13:43 | XRAY Report ---
PROCEDURE: Wrist 1-2V RT INDICATIONS: R wrist "snap" heard by PT and pt developed pain TECHNIQUE: 3 views of the wrist were acquired. COMPARISON: None. FINDINGS: Bones: No fractures or dislocations. No suspicious bony lesions. Soft tissues: No suspicious soft tissue calcifications or masses. IMPRESSION: No acute fracture. No osseous lesion. If symptoms and/or clinical suspicion for pathology continue, f urther assessment with repeat plain films, or advanced imaging (e.g., CT, MRI, or bone scan) is recom mended for further assessment. Reviewed by: Whitney Pitts MD on 03/27/2023 1:42 PM PST Approved by: Whitney Pitts MD on 03/27/2023 1:42 PM PST Station ID: [id number]
--- NOTE | 2023-03-27 17:21 | PROVIDER PROGRESS NOTE ---
Assessment/Plan - Problem List (1) Ribs, multiple fractures Qualifiers: Fracture type: closed Laterality: left Assessment/Plan: He had a fall at home, broke several ribs, is on the Surg service. he had no PTX or splenic trauma Recommend: Agree with pain control, being conservative with iv narcotics and NSAIDs given the fact the patient is on apixaban. PT/OT to see patient Will order orthostatic VS to eval why he fell Patient appears to have a good family structure at home and will likely discharge with Home Health PT and OT and bath aide Encourage use of incentive spirometer. (2) Frequent falls He has had "multiple small falls and 3 serious falls (enough to bring him to ER, per daughters at bedside), over the past 6 mos". Thus falls risk causing severe bleeding now outweighe benefit of continuing any anticoagulation. This was explained to both daughters at bedside today Plan: Check orthostatic vital signs Place on telemetry and monitor for arrhythmia Stop Eliquis (3) R wrist pain Today while working with PT for the first time, the physical therapist heard a snap in the right wrist and the patient then had pain Plan: Will obtain x-rays of the right wrist to look for fracture or dislocation (4) Hypertension Recommend: Continue metoprolol and losartan. parameters when to hold are in place (5) Atrial Fibrillation Recommend: Stop apixaban, since he has had "multiple small falls and 3 serious falls (enough to bring him to ER, per daughters at bedside), over the past 6 mos". Thus falls risk causing severe bleeding now outweighe benefit of continuing any anticoagulation. This was explained to both daughters at bedside today Continue metoprolol for rate control. (6) Diabetes Mellitus Recommend: Continue metformin 1000 mg twice daily, fingerstick checks, ss Insulin coverage and hypoglycemia protocol (7) AMS Yesterday after receiving Dilaudid he was asleep in the chair and was then obtunded for prolonged time. The 2 children at bedside told his RN that he has had "blackouts like this at home". RN reports to me that the patient also tries to joke about every answer that he gives, which could be from him covering up dementia. The children told the patient's RN that he needs direct instructions and they noticed this type of behavior as well. Plan: Check orthostatic vital signs Place on telemetry and monitor for arrhythmia He may need a cognitive eval - Current Meds Current Meds: Current Medications Generic Name Dose Route Start Last Admin Trade Name Maycolq PRN Reason Stop Dose Admin Acetaminophen 650 mg 03/24/23 23:00 03/27/23 11:30 Acetaminophen 325 Mg Tablet PO 650 mg Q6H JEEVAN Administration Apixaban 5 mg 03/25/23 09:00 03/27/23 08:21 Apixaban 5 Mg Tablet PO 5 mg BID JEEVAN Administration Atorvastatin Calcium 80 mg 03/25/23 09:00 03/27/23 08:20 Atorvastatin 40 Mg Tablet PO 80 mg DAILY JEEVAN Administration Cholecalciferol 2,000 unit 03/25/23 09:00 03/27/23 08:21 Cholecalciferol 400 Unit Tablet PO 2,000 unit DAILY JEEVAN Administration Cyanocobalamin 500 mcg 03/26/23 11:00 03/27/23 08:21 Cyanocobalamin 500 Mcg Tablet PO 500 mcg DAILY JEEVAN Administration Cyclobenzaprine HCl 10 mg 03/27/23 12:56 03/27/23 13:20 Cyclobenzaprine 10 Mg Tablet PO 10 mg TID PRN Administration Spasms Doxazosin Mesylate 2 mg 03/25/23 21:00 03/26/23 20:59 Doxazosin 1 Mg Tablet PO 2 mg QPM JEEVAN Administration Duloxetine HCl 30 mg 03/25/23 09:00 03/27/23 08:20 Duloxetine 30 Mg Capsule PO 30 mg BID JEEVAN Administration Ferrous Sulfate 325 mg 03/25/23 08:00 03/27/23 08:21 Ferrous Sulfate 325 Mg Tablet PO 325 mg DAILYWM JEEVAN Administration Finasteride 5 mg 03/24/23 23:00 03/26/23 20:59 Finasteride 5 Mg Tablet PO 5 mg QPM JEEVAN Administration Lidocaine 1 patch 03/24/23 23:00 03/26/23 20:59 Lidocaine Patch 4% TOP 1 patch HS JEEVAN Administration Loratadine 10 mg 03/25/23 09:00 03/27/23 08:21 Loratadine 10 Mg Tablet PO 10 mg DAILY JEEVAN Administration Losartan Potassium 50 mg 03/25/23 09:00 03/27/23 08:22 Losartan 50 Mg Tablet PO 50 mg DAILY JEEVAN Administration Metformin HCl 1,000 mg 03/25/23 09:00 03/27/23 08:21 Metformin 500 Mg Tablet PO 1,000 mg BIDWM JEEVAN Administration Metoprolol Succinate 12.5 mg 03/25/23 09:00 03/27/23 08:21 Metoprolol Succinate 25 Mg Tablet PO 12.5 mg DAILY JEEVAN Administration Oxycodone HCl 7.5 mg 03/26/23 12:53 03/27/23 16:39 Oxycodone 5 Mg Tablet PO 7.5 mg Q4HR PRN Administration Moderate Pain (Level 4-6) Pantoprazole Sodium 40 mg 03/25/23 07:00 03/27/23 07:48 Pantoprazole 40 Mg Tablet PO 40 mg QDAC JEEVAN Administration Empagliflozin [ 1 each 03/25/23 09:00 03/27/23 09:29 Jardiance] 25 Mg PO Not Given Tablet DAILY JEEVAN Sodium Chloride 10 ml 03/25/23 01:00 03/27/23 08:22 Sodium Chloride Flush 0.9% 10 Ml Syringe IVP 10 ml 0100,0900,1700 JEEVAN Administration - Lab Result Fish Bone Diagrams: 03/27/23 05:41 03/27/23 05:41 - Additional Planning My Orders: My Active Orders 03/27/23 Evaluate and Treat PT [PT] Routine 03/27/23 08:45 Orthostatic [Vital Signs - Orthostatic] [RC] DAILY 03/27/23 08:48 Miscellaenous Nursing Order [RC] QSHIFT 03/27/23 12:56 Cyclobenzaprine [Flexeril] 10 mg PO TID PRN 03/27/23 12:57 Telemetry- [RC] Q4HR Objective Vital Signs: Vital Signs - 24 hr 03/27/23 03/27/23 03/27/23 00:01 08:02 11:55 Temperature 36.6 C 36.6 C Heart Rate [ 68 75 Brachial] Heart Rate [ 63 Sitting] Heart Rate [ 71 Standing] Heart Rate [ 67 Supine] Respiratory 18 18 Rate Blood Pressure 136/81 H 143/79 H [Right Brachial artery] Blood Pressure 127/100 H [Sitting] Blood Pressure 116/63 [Standing] Blood Pressure 135/76 H [Supine] O2 Saturation 95 95 Oxygen O2 Source Room air I&O (Last 24 Hrs): Intake and Output Totals x24h 03/25/23 03/26/23 03/27/23 23:59 23:59 23:59 Intake Total 960 700 680 Output Total 175 100 675 Balance 785 600 5 General: Moderate distress (when he coughs, gets L lat ribcage pain) HEENT: Mucous membr. moist/pink Neck: Supple Neuro: Other (Minimally communicative, whispers 2 word answers. Earlier in the day he was answering no to every question that the RN asked and was trying to make a joke out of every sentence) Cardiovascular: Regular rate, No murmurs Respiratory: No respiratory distress, Breath sounds nml Abdomen: Normal bowel sounds, Soft Extremities: No clubbing, No edema, Other (mult bruises of arms) - Results Results: Laboratory Results WBC 8.5 x10^3/uL (4.8-10.8) 03/27/23 05:41 RBC 3.31 10^6/uL (4.70-6.10) L 03/27/23 05:41 Hgb 10.2 g/dL (14.0-18.0) L 03/27/23 05:41 Hct 32.5 % (42.0-52.0) L 03/27/23 05:41 MCV 98.2 fL (80.0-94.0) H 03/27/23 05:41 MCH 30.8 pg (27.0-31.0) 03/27/23 05:41 MCHC 31.4 g/dL (32.0-36.0) L 03/27/23 05:41 RDW 14.8 % (12.0-15.0) 03/27/23 05:41 Plt Count 175 10^3/uL (130-450) 03/27/23 05:41 MPV 10.2 fL (7.4-11.4) 03/27/23 05:41 Neut # (Auto) 5.4 10^3/uL (1.5-6.6) 03/27/23 05:41 Lymph # (Auto) 1.6 10^3/uL (1.5-3.5) 03/27/23 05:41 [place] # (Auto) 1.4 10^3/uL (0.0-1.0) H 03/27/23 05:41 Eos # (Auto) 0.0 10^3/uL (0.0-0.7) 03/27/23 05:41 Baso # (Auto) 0.0 10^3/uL (0.0-0.1) 03/27/23 05:41 Absolute Nucleated RBC 0.00 x10^3/uL 03/27/23 05:41 Nucleated RBC % 0.0 /100WBC 03/27/23 05:41 Manual Slide Review Indicated 03/24/23 22:35 WBC Morphology 1+ HYPERSEG NEUT (NORMAL) 03/24/23 22:35 Platelet Estimate NORMAL (130-450,000) (NORMAL) 03/24/23 22:35 Platelet Morphology NORMAL APPEARANCE (NORMAL) 03/24/23 22:35 RBC Morph Micro Appear 2+ ANISOCYTOSIS (NORMAL) 1+ MACROCYTOSIS (NORMAL) 03/24/23 22:35 RBC Morph Micro Appear 2+ ANISOCYTOSIS (NORMAL) 1+ MACROCYTOSIS (NORMAL) 03/24/23 22:35 Sodium 137 mmol/L (135-145) 03/27/23 05:41 Potassium 3.8 mmol/L (3.5-4.5) 03/27/23 05:41 Chloride 103 mmol/L (101-111) 03/27/23 05:41 Carbon Dioxide 26 mmol/L (21-32) 03/27/23 05:41 Anion Gap 8.0 (6-13) 03/27/23 05:41 BUN 21 mg/dL (6-20) H 03/27/23 05:41 Creatinine 0.9 mg/dL (0.6-1.3) 03/27/23 05:41 Estimated GFR (MDRD) 81 (>89) L 03/27/23 05:41 Glucose 126 mg/dL (74-104) H 03/27/23 05:41 POC Whole Bld Glucose 152 mg/dL (70 - 100) H 03/27/23 11:38 Calcium 9.2 mg/dL (8.5-10.3) 03/27/23 05:41 Phosphorus 3.8 mg/dL (2.5-5.0) 03/27/23 05:41 Magnesium 1.3 mg/dL (1.7-2.3) L 03/27/23 05:41 Total Bilirubin 0.4 mg/dL (0.2-1.0) 03/24/23 22:35 AST 11 IU/L (10-42) 03/24/23 22:35 ALT 6 IU/L (10-60) L 03/24/23 22:35 Alkaline Phosphatase 39 IU/L (42-121) L 03/24/23 22:35 Total Protein 6.9 g/dL (6.4-8.9) 03/24/23 22:35 Albumin 3.9 g/dL (3.2-5.5) 03/24/23 22:35 Globulin 3.0 g/dL (2.1-4.2) 03/24/23 22:35 Albumin/Globulin Ratio 1.3 (1.0-2.2) 03/24/23 22:35
[2023-03-27] MEDS: polyethylene glycoL 3350 17 GM PACKET PO SCH (20:52)
[2023-03-27] MEDS: IBUPROFEN 400 MG TABLET PO SCH (23:54)
--- NOTE | 2023-03-28 06:53 | PROVIDER PROGRESS NOTE ---
Subjective - General Admit Date: 03/26/23 - Other Other Information/Narrative: Pain controlled this AM. Patient was able to get some sleep last night. No n/v, f/c. No new questions or concerns. No documented BM since admission. Objective - Patient Data Reviewed Vital Signs: Yes Vital Signs: Vital Signs x48h Temp Pulse Resp BP Pulse Ox 03/28/23 05:00 36.4 C L 68 18 137/69 H 97 03/27/23 23:57 36.7 C 69 18 144/71 H 95 Intake & Output: Intake and Output Totals x24h 03/26/23 03/27/23 03/28/23 23:59 23:59 23:59 Intake Total 700 1160 Output Total 100 675 Balance 600 485 - Lab Results Lab Results: 03/27/23 05:41 03/27/23 05:41 Other Lab Results: Lab Results x24hrs 03/27/23 03/27/23 03/27/23 Range/Units 20:34 17:09 11:38 POC Whole Bld Glucose 118 H 98 152 H (70 - 100) mg/dL 03/27/23 Range/Units 08:07 POC Whole Bld Glucose 116 H (70 - 100) mg/dL - Current Medications Current Medications: Current Medications Generic Name Dose Route Start Last Admin Trade Name Freq PRN Reason Stop Dose Admin Acetaminophen 650 mg 03/24/23 23:00 03/28/23 06:08 Acetaminophen 325 Mg Tablet PO 650 mg Q6H JEEVAN Administration Atorvastatin Calcium 80 mg 03/25/23 09:00 03/27/23 08:20 Atorvastatin 40 Mg Tablet PO 80 mg DAILY JEEVAN Administration Cholecalciferol 2,000 unit 03/25/23 09:00 03/27/23 08:21 Cholecalciferol 400 Unit Tablet PO 2,000 unit DAILY JEEVAN Administration Cyanocobalamin 500 mcg 03/26/23 11:00 03/27/23 08:21 Cyanocobalamin 500 Mcg Tablet PO 500 mcg DAILY JEEVAN Administration Cyclobenzaprine HCl 10 mg 03/27/23 12:56 03/27/23 20:52 Cyclobenzaprine 10 Mg Tablet PO 10 mg TID PRN Administration Spasms Doxazosin Mesylate 2 mg 03/25/23 21:00 03/27/23 20:52 Doxazosin 1 Mg Tablet PO 2 mg QPM JEEVAN Administration Duloxetine HCl 30 mg 03/25/23 09:00 03/27/23 20:52 Duloxetine 30 Mg Capsule PO 30 mg BID JEEVAN Administration Ferrous Sulfate 325 mg 03/25/23 08:00 03/27/23 08:21 Ferrous Sulfate 325 Mg Tablet PO 325 mg DAILYWM JEEVAN Administration Finasteride 5 mg 03/24/23 23:00 03/27/23 20:52 Finasteride 5 Mg Tablet PO 5 mg QPM JEEVAN Administration Ibuprofen 400 mg 03/28/23 00:00 03/28/23 06:07 Ibuprofen 400 Mg Tablet PO 400 mg Q6HR JEEVAN Administration Lidocaine 1 patch 03/24/23 23:00 03/27/23 20:52 Lidocaine Patch 4% TOP 1 patch HS JEEVAN Administration Loratadine 10 mg 03/25/23 09:00 03/27/23 08:21 Loratadine 10 Mg Tablet PO 10 mg DAILY JEEVAN Administration Losartan Potassium 50 mg 03/25/23 09:00 03/27/23 08:22 Losartan 50 Mg Tablet PO 50 mg DAILY JEEVAN Administration Metformin HCl 1,000 mg 03/25/23 09:00 03/27/23 17:06 Metformin 500 Mg Tablet PO 1,000 mg BIDWM JEEVAN Administration Metoprolol Succinate 12.5 mg 03/25/23 09:00 03/27/23 08:21 Metoprolol Succinate 25 Mg Tablet PO 12.5 mg DAILY JEEVAN Administration Oxycodone HCl 7.5 mg 03/26/23 12:53 03/27/23 16:39 Oxycodone 5 Mg Tablet PO 7.5 mg Q4HR PRN Administration Moderate Pain (Level 4-6) Pantoprazole Sodium 40 mg 03/25/23 07:00 03/28/23 06:08 Pantoprazole 40 Mg Tablet PO 40 mg QDAC JEEVAN Administration Empagliflozin [ 1 each 03/25/23 09:00 03/27/23 09:29 Jardiance] 25 Mg PO Not Given Tablet DAILY JEEVAN Polyethylene Glycol 17 gm 03/27/23 21:00 03/27/23 20:52 Polyethylene Glycol 3350 17 Gm Packet PO 17 gm BID JEEVAN Administration Sodium Chloride 10 ml 03/25/23 01:00 03/27/23 23:56 Sodium Chloride Flush 0.9% 10 Ml Syringe IVP 10 ml 0100,0900,1700 JEEVAN Administration - Physical Exam General Appearance: positive: No acute distress, Alert Eyes Bilateral: positive: Normal inspection, PERRL ENT: positive: No signs of dehydration Neck: positive: Trachea midline Respiratory: positive: No respiratory distress. negative: Chest non-tender (left lateral chest wall pain) Cardiovascular: positive: Regular rate & rhythm Abdomen: positive: No distention, Other (obese). negative: Tenderness, Guarding, Rebound Skin: positive: No rash Extremities: positive: Non-tender, Full ROM Neurologic/Psychiatric: positive: Oriented x3 Impression/Plan - Problem List Problem List: 82 y/o M s/p GLF with: 1. Left posterior rib 9, 10 fx - no hemothorax, no pneumothorax, no splenic injury - at the time of my visit, pain controlled with multimodal approach, doing pretty well without IV meds. Increased oxycodone to 7.5mg po q4h on 03/26, encourage non narcotic pain med use first. Since patient elected to stop eliquis, I added IBU to his multimodal pain medication regimen. - encouraged IS use - will increase activity today, PT/OT agree he is safe to go home with home health and arrangements for HH are pending (they have been ordered). 2. Depression, diabetes, atrial fibrillation, chronic anemia, HTN - appreciate medicine consultation to help manage chronic medical problems - in discussion with medicine yesterday, patient and his daughter elected to stop eliquis due to frequent falls. 3. progressive frailty - refuses to use home walker (prior to this hospital stay) - PT/OT, SW following. 4. constipation - miralax dose increasead. Patient's family reassured that he is improving but would like one more day (today) for him to trial ibuprofen and work on pain control prior to discharge. They are arranging to have appropriate help for him and his at home. Plan to discharge when pain controlled with PO meds, safe discharge plan in place, likely tomorrow. Patient currently inpatient on med/surg.
[2023-03-28] MEDS ORDERED: polyethylene glycoL 3350 17 GM PACKET PO SCH (09:00)
[2023-03-28] MEDS: CYCLOBENZAPRINE 10 MG TABLET PO PRN (12:18)
--- NOTE | 2023-03-28 13:54 | PROVIDER PROGRESS NOTE ---
Assessment/Plan - Problem List (1) Ribs, multiple fractures Qualifiers: Fracture type: closed Laterality: left Assessment/Plan: He had a fall at home, broke several ribs, is on the Surg service. He had no PTX or splenic trauma. I updated the daughters at bedside regarding that he will have many weeks of pleuritic pain Recommend: Agree with pain control, being conservative with iv narcotics to prevent oversedation, and with NSAIDs for risk of PUD. Use of scheduled Tylenol and low dose of Flexeril and low dose of Oxycodone is great. PT/OT to cont to work with patient Cont to follow orthostatic VS which are abnormal (see #3 for recommended med a djustments) Patient appears to have a good family structure at home and will likely discharge with Home Health PT and OT and bath aide Encourage use of incentive spirometer. (2) Frequent falls He has had "multiple small falls and 3 serious falls (enough to bring him to ER, per daughters at bedside), over the past 6 mos". Thus falls risk causing severe bleeding now outweighe benefit of continuing any anticoagulation. This was explained to both daughters at bedside yesterday. I stopped his Eliquis Plan: Remain off Eliquis Cont to follow orthostatic VS Cont to monitor on telemetry (3) Orthostatic hypotension Today supine BP 133/75, HR 65. Sitting BP 109/57, HR 63. Standing BP 107/62, heart rate 69. Therefore, the patient has a 24 mm drop in systolic blood pressure making him orthostatic. Also he has no compensatory heart rate response to standing, this is probably because he is on a beta-vickie Plan: I will stop his metoprolol 12.5 mg daily. I will change it to a tiny B-vickie dose, using Carvedilol 3.125 daily. The next change if needed would be with to his Losartan dose The patient is not right ready for discharge. Continue to monitor orthostatic vital signs and adjust medications (4) Hx Hypertension Recommend: Will adjust his metoprolol and losartan doses Cont parameters of when to hold his meds (5) Atrial Fibrillation Recommend: Remain off apixaban, since he has had "multiple small falls and 3 serious falls (enough to bring him to ER, per daughters at bedside), over the past 6 mos". Thus falls risk causing severe bleeding now outweighs benefit of continuing any anticoagulation. This was explained to both daughters at bedside on 03/27/23 and they understood. Continue a tiny B-vickie dose for rate control. (6) Diabetes Mellitus Recommend: Continue metformin 1000 mg twice daily, fingerstick checks, ss Insulin coverage and hypoglycemia protocol (7) AMS Several days ago, after receiving Dilaudid, he was asleep in the chair and was then obtunded for prolonged time. The 2 visitors at bedside then told his RN that he has had "blackouts like this at home". RN reports to me that the patient also tries to joke about every answer that he gives, which I suspect is from him covering up dementia. The children noticed this type of behavior as well & told the patient's RN that he needs direct instructions. Plan: Cont to check orthostatic vital signs Cont to monitor on telemetry for treatable arrhythmias He may need a cognitive eval - Current Meds Current Meds: Current Medications Generic Name Dose Route Start Last Admin Trade Name Freq PRN Reason Stop Dose Admin Acetaminophen 650 mg 03/24/23 23:00 03/28/23 11:31 Acetaminophen 325 Mg Tablet PO 650 mg Q6H JEEVAN Administration Atorvastatin Calcium 80 mg 03/25/23 09:00 03/28/23 08:43 Atorvastatin 40 Mg Tablet PO 80 mg DAILY JEEVAN Administration Cholecalciferol 2,000 unit 03/25/23 09:00 03/28/23 08:43 Cholecalciferol 400 Unit Tablet PO 2,000 unit DAILY JEEVAN Administration Cyanocobalamin 500 mcg 03/26/23 11:00 03/28/23 08:43 Cyanocobalamin 500 Mcg Tablet PO 500 mcg DAILY JEEVAN Administration Cyclobenzaprine HCl 5 mg 03/28/23 07:43 03/28/23 12:18 Cyclobenzaprine 10 Mg Tablet PO 5 mg TID PRN Administration Spasms Doxazosin Mesylate 2 mg 03/25/23 21:00 03/27/23 20:52 Doxazosin 1 Mg Tablet PO 2 mg QPM JEEVAN Administration Duloxetine HCl 30 mg 03/25/23 09:00 03/28/23 08:43 Duloxetine 30 Mg Capsule PO 30 mg BID JEEVAN Administration Ferrous Sulfate 325 mg 03/25/23 08:00 03/28/23 08:43 Ferrous Sulfate 325 Mg Tablet PO 325 mg DAILYWM JEEVAN Administration Finasteride 5 mg 03/24/23 23:00 03/27/23 20:52 Finasteride 5 Mg Tablet PO 5 mg QPM JEEVAN Administration Ibuprofen 400 mg 03/28/23 00:00 03/28/23 11:31 Ibuprofen 400 Mg Tablet PO 400 mg Q6HR JEEVAN Administration Lidocaine 1 patch 03/24/23 23:00 03/27/23 20:52 Lidocaine Patch 4% TOP 1 patch HS JEEVAN Administration Loratadine 10 mg 03/25/23 09:00 03/28/23 08:43 Loratadine 10 Mg Tablet PO 10 mg DAILY JEEVAN Administration Losartan Potassium 50 mg 03/25/23 09:00 03/28/23 08:43 Losartan 50 Mg Tablet PO 50 mg DAILY JEEVAN Administration Metformin HCl 1,000 mg 03/25/23 09:00 03/28/23 08:42 Metformin 500 Mg Tablet PO 1,000 mg BIDWM JEEVAN Administration Metoprolol Succinate 12.5 mg 03/25/23 09:00 03/28/23 08:43 Metoprolol Succinate 25 Mg Tablet PO 12.5 mg DAILY JEEVAN Administration Oxycodone HCl 7.5 mg 03/26/23 12:53 03/27/23 16:39 Oxycodone 5 Mg Tablet PO 7.5 mg Q4HR PRN Administration Moderate Pain (Level 4-6) Pantoprazole Sodium 40 mg 03/25/23 07:00 03/28/23 06:08 Pantoprazole 40 Mg Tablet PO 40 mg QDAC JEEVAN Administration Empagliflozin [ 1 each 03/25/23 09:00 03/28/23 08:44 Jardiance] 25 Mg PO Not Given Tablet DAILY JEEVAN Polyethylene Glycol 17 gm 03/27/23 21:00 03/28/23 08:42 Polyethylene Glycol 3350 17 Gm Packet PO 17 gm BID JEEVAN Administration Sodium Chloride 10 ml 03/25/23 01:00 03/28/23 08:44 Sodium Chloride Flush 0.9% 10 Ml Syringe IVP 10 ml 0100,0900,1700 JEEVAN Administration - Lab Result Fish Bone Diagrams: 03/27/23 05:41 03/27/23 05:41 - Additional Planning My Orders: My Active Orders 03/27/23 12:57 Telemetry- [RC] Q4HR Subjective - Subjective Patient Reports: Other (Communicateing, able to feed himself, denies pain) Objective Vital Signs: Vital Signs - 24 hr 03/27/23 03/27/23 03/27/23 17:00 21:00 23:57 Temperature 36.6 C 36.6 C 36.7 C Heart Rate [ 66 66 69 Brachial] Respiratory 18 18 18 Rate Blood Pressure 136/74 H 138/69 H 144/71 H [Right Brachial artery] O2 Saturation 96 96 95 03/28/23 03/28/23 03/28/23 05:00 07:40 13:00 Temperature 36.4 C L 36.5 C 36.4 C L Heart Rate [ 68 63 63 Brachial] Respiratory 18 22 20 Rate Blood Pressure 137/69 H 90/71 146/79 H [Right Brachial artery] O2 Saturation 97 97 97 Oxygen O2 Source Room air I&O (Last 24 Hrs): Intake and Output Totals x24h 03/26/23 03/27/23 03/28/23 23:59 23:59 23:59 Intake Total 700 1160 350 Output Total 100 675 450 Balance 600 485 -100 General: Alert, No acute distress HEENT: Mucous membr. moist/pink Neck: Supple Neuro: Alert, Non Focal Cardiovascular: Regular rate, No murmurs Respiratory: No respiratory distress, Breath sounds nml Abdomen: Normal bowel sounds, Soft Extremities: No clubbing, No edema, Other (L hand, has 2 fingers amputated) - Results Results: Laboratory Results WBC 8.5 x10^3/uL (4.8-10.8) 03/27/23 05:41 RBC 3.31 10^6/uL (4.70-6.10) L 03/27/23 05:41 Hgb 10.2 g/dL (14.0-18.0) L 03/27/23 05:41 Hct 32.5 % (42.0-52.0) L 03/27/23 05:41 MCV 98.2 fL (80.0-94.0) H 03/27/23 05:41 MCH 30.8 pg (27.0-31.0) 03/27/23 05:41 MCHC 31.4 g/dL (32.0-36.0) L 03/27/23 05:41 RDW 14.8 % (12.0-15.0) 03/27/23 05:41 Plt Count 175 10^3/uL (130-450) 03/27/23 05:41 MPV 10.2 fL (7.4-11.4) 03/27/23 05:41 Neut # (Auto) 5.4 10^3/uL (1.5-6.6) 03/27/23 05:41 Lymph # (Auto) 1.6 10^3/uL (1.5-3.5) 03/27/23 05:41 [place] # (Auto) 1.4 10^3/uL (0.0-1.0) H 03/27/23 05:41 Eos # (Auto) 0.0 10^3/uL (0.0-0.7) 03/27/23 05:41 Baso # (Auto) 0.0 10^3/uL (0.0-0.1) 03/27/23 05:41 Absolute Nucleated RBC 0.00 x10^3/uL 03/27/23 05:41 Nucleated RBC % 0.0 /100WBC 03/27/23 05:41 Manual Slide Review Indicated 03/24/23 22:35 WBC Morphology 1+ HYPERSEG NEUT (NORMAL) 03/24/23 22:35 Platelet Estimate NORMAL (130-450,000) (NORMAL) 03/24/23 22:35 Platelet Morphology NORMAL APPEARANCE (NORMAL) 03/24/23 22:35 RBC Morph Micro Appear 2+ ANISOCYTOSIS (NORMAL) 1+ MACROCYTOSIS (NORMAL) 03/24/23 22:35 RBC Morph Micro Appear 2+ ANISOCYTOSIS (NORMAL) 1+ MACROCYTOSIS (NORMAL) 03/24/23 22:35 Sodium 137 mmol/L (135-145) 03/27/23 05:41 Potassium 3.8 mmol/L (3.5-4.5) 03/27/23 05:41 Chloride 103 mmol/L (101-111) 03/27/23 05:41 Carbon Dioxide 26 mmol/L (21-32) 03/27/23 05:41 Anion Gap 8.0 (6-13) 03/27/23 05:41 BUN 21 mg/dL (6-20) H 03/27/23 05:41 Creatinine 0.9 mg/dL (0.6-1.3) 03/27/23 05:41 Estimated GFR (MDRD) 81 (>89) L 03/27/23 05:41 Glucose 126 mg/dL (74-104) H 03/27/23 05:41 POC Whole Bld Glucose 91 mg/dL (70 - 100) 03/28/23 11:48 Calcium 9.2 mg/dL (8.5-10.3) 03/27/23 05:41 Phosphorus 3.8 mg/dL (2.5-5.0) 03/27/23 05:41 Magnesium 1.3 mg/dL (1.7-2.3) L 03/27/23 05:41 Total Bilirubin 0.4 mg/dL (0.2-1.0) 03/24/23 22:35 AST 11 IU/L (10-42) 03/24/23 22:35 ALT 6 IU/L (10-60) L 03/24/23 22:35 Alkaline Phosphatase 39 IU/L (42-121) L 03/24/23 22:35 Total Protein 6.9 g/dL (6.4-8.9) 03/24/23 22:35 Albumin 3.9 g/dL (3.2-5.5) 03/24/23 22:35 Globulin 3.0 g/dL (2.1-4.2) 03/24/23 22:35 Albumin/Globulin Ratio 1.3 (1.0-2.2) 03/24/23 22:35
--- NOTE | 2023-03-29 07:23 | Discharge Plan ---
Discharge Plan Problem Reviewed?: Yes Disposition: Home Health Service Condition: Stable Prescriptions: Cyclobenzaprine [Flexeril] 10 mg PO TID PRN 10 Days #30 tablet PRN Reason: Spasms Lidocaine Patch 5% [Lidoderm Patch] 1 each TOP DAILY #14 patch polyethylene glycoL 3350(BULK) [Miralax] 17 gm PO DAILY #238 gm oxyCODONE [Roxicodone] 7.5 mg PO Q4H PRN #25 tablet PRN Reason: Pain Diet: Regular Activity Restrictions: Activity as Tolerated Shower Restrictions: No Driving Restrictions: Yes (do not drive while taking narcotic pain medication) Assistance Devices: Walker Weight Bearing: Full Weight Instruction Topics: Fx Rib Plan of Treatment: pain control with multimodal medication approach, increase activity (use walker, PT) Care Goals: pain control, increase activity Assessment: Pain much better controlled, using IS. Additional Instructions or Follow Up instructions: Use tylenol 500-650mg by mouth every four hours scheduled ibuprofen 400mg by mouth every six hours scheduled (eat before taking this medication, even a small snack is fine) lidoderm patch on 12 hours, off 12 hours daily flexeril (cyclobenzaprine) 1/2-1 tab every 8 hours for severe pain/muscle spasm (do not take within one hour of oxycodone) oxycodone 7.5mg (ok to take 1/2-1 pill) every 4 hours as needed for severe pain Use lidoderm, tylenol, ibuprofen every day for two weeks Use flexeril, oxycodone only as needed and stop taking these medications first. Next, lengthen the time between doses of ibuprofen and tylenol. Stop ibuprofen before tylenol. Be very careful walking while taking flexeril and oxycodone. Ok to shower. Follow-Up Care: Home Health - RN, Home Health - PT No Smoking: If you smoke, Please STOP! Call for help. Follow-up with: Ana Pryor MD [Provider Admit Priv/Credential] -
--- NOTE | 2023-03-29 07:41 | DISCHARGE SUMMARY ---
"Discharge Summary Admit Date: 03/24/23 Discharge Date: 03/29/23 Discharging Provider: Dr. Meredith Pryor Condition at Discharge: Stable Discharge Disposition: 06 Home Health Service - DIAGNOSES Admission Diagnoses: s/p fall from standing left arm contusion, no fracture left lateral rib 9, 10 fracture, non displaced DM HTN Atrial fibrillation Discharge Diagnoses with Status of Each Condition: s/p fall from standing, thought to be due to orthostasis left arm contusion, no fracture, improving left lateral rib 9, 10 fracture, non displaced, improving DM, stable HTN, stable Atrial fibrillation, stable - HPI History of Present Illness: 82 male who lost his balance walking up the back deck steps, fell, and struck his left arm and left chest on the ground. He required assistance standing. He denies LOC. He has a history of GLF's in the recent past and his family members are in the process of having him evaluated for these events. At the time of admission, he denies SOA, complained of left arm and left chest wall pain. - CONSULTS | PROCEDURES Consultations: Medicine Procedures: none - HOSPITAL COURSE Hospital Course: The patient was admitted for pain control and required IV medication for several days, which was tapered and at the time of discharge his pain is well controlled with a multimodal pain regimen of po medications. His fall was thought to be related to orthostasis. The patient worked with PT some and is encouraged to use his walker at home. He will have home health RN and PT on discharge. He will go home where he is cared for by several family members. After discussion with the medicine team, shared decision making with the family and patient is that the patient should stop taking eliquis at this time. He is tolerating a regular diet. He is stable for discharge at this time. - ALLERGIES Allergies/Adverse Reactions: Allergies Allergy/AdvReac Type Severity Reaction Status Date / Time No Known Drug Allergies Allergy Verified 01/16/23 23:14 - MEDICATIONS Home Medications: Ambulatory Orders Medication Instructions Recorded Confirmed Atorvastatin Calcium [Lipitor] 80 mg PO DAILY 02/13/22 03/24/23 Cholecalciferol [Vitamin D3] 2,000 unit PO DAILY 02/13/22 03/24/23 Doxazosin Mesylate [Cardura] 2 mg PO DAILY PM 02/13/22 03/24/23 Empagliflozin [Jardiance] 12.5 mg PO DAILY 02/13/22 03/24/23 Finasteride [Proscar] 5 mg PO DAILY PM 02/13/22 03/24/23 Loratadine [Claritin] 10 mg PO DAILY 02/13/22 03/24/23 Losartan [Cozaar] 50 mg PO DAILY 02/13/22 03/24/23 Metoprolol Succinate [Toprol Xl] 12.5 mg PO DAILY 02/13/22 03/24/23 Omeprazole 20 mg PO QDBREAKFAST 02/13/22 03/24/23 amLODIPine [Norvasc] 5 mg PO DAILY PM 02/13/22 03/24/23 metFORMIN [Glucophage] 1,000 mg PO BID 02/13/22 03/24/23 Cyclobenzaprine [Flexeril] 10 mg PO TID PRN 10 Days #30 tablet 03/28/23 Lidocaine Patch 5% [Lidoderm Patch] 1 each TOP DAILY #14 patch 03/28/23 oxyCODONE [Roxicodone] 7.5 mg PO Q4H PRN #25 tablet 03/28/23 polyethylene glycoL 3350(BULK) 17 gm PO DAILY #238 gm 03/28/23 [Miralax] - PHYSICAL EXAM AT DISCHARGE General Appearance: positive: No acute distress, Alert Eyes Bilateral: positive: PERRL, EOMI ENT: positive: No signs of dehydration Neck: positive: Trachea midline Respiratory: positive: No respiratory distress Cardiovascular: positive: Regular rate & rhythm Abdomen: positive: Non-tender Skin: positive: No rash Extremities: negative: Non-tender (mild L forarm tenderness) Neurologic/Psychiatric: positive: Oriented x3 - LABS Result Diagrams: 03/27/23 05:41 03/27/23 05:41 - FOLLOW UP Follow Up: PCP in 1-2 weeks"
[2023-03-29 07:48] VITALS: BP 135/69; O2SAT 96
[2023-03-29] MEDS: carvediloL 3.125 MG TABLET PO SCH (08:16)
[2023-03-29 11:53] LABS: ESTIMATED AVERAGE GLUCOSE 126 mg/dL (70-100)
== END 2023-03-29 10:25 | disposition home health service (06) | DRG 185 ==
LOC: ED 18:24 → MS3 22:06 → OBSVTOIN 03-26 12:47
PROVIDERS: ADMIT Surgery; ATTEND Surgery
DX: S22.42XA Multiple fractures of ribs, left side, initial encounter for closed fracture (principal); W10.9XXA Fall (on) (from) unspecified stairs and steps, initial encounter; S50.12XA Contusion of left forearm, initial encounter; I48.91 Unspecified atrial fibrillation; D64.9 Anemia, unspecified; I10 Essential (primary) hypertension; E11.9 Type 2 diabetes mellitus without complications; F32.A Depression, unspecified; N40.0 Benign prostatic hyperplasia without lower urinary tract symptoms; E78.00 Pure hypercholesterolemia, unspecified; R54 Age-related physical debility; R29.6 Repeated falls; Z91.81 History of falling; Z53.29 Procedure and treatment not carried out because of patient's decision for other reasons; Z89.022 Acquired absence of left finger(s); Z79.84 Long term (current) use of oral hypoglycemic drugs; Z79.01 Long term (current) use of anticoagulants; Y92.008 Other place in unspecified non-institutional (private) residence as the place of occurrence of the external cause
CPT/HCPCS: 36415; 70450; 71250; 73090; 73100; 80048; 80053; 83036; 83735; 84100; 85025; 93005; 96372; 96374; 96376; 97161; 97164; 97166; 97530; 99284; 99285; A9270; J1170; J7120

== ENCOUNTER 2023-04-02 16:36 | Outpatient (CLI) | payer OTHER ==
--- NOTE | 2023-04-03 13:42 | MRI Report ---
PROCEDURE: MRI brain without contrast INDICATIONS: COGNITIVE DECLINE TECHNIQUE: Multiplanar multisequential MR images of the brain were obtained without contrast COMPARISON: None FINDINGS: CSF Spaces: Basal cisterns are patent. No extra-axial fluid collections. Ventricles are normal in size and shape. Brain: No intracranial masses or hemorrhage. Proctor/white matter interface is normal. Brainstem appe ars normal. Diffusion-weighted images shows no evidence of acute infarct. Normal intravascular flow voids are present. Moderate atrophy and white matter chronic ischemic change noted. Skull and face: Calvarium has normal marrow signal. Orbits appear normal. Sinuses: Sinuses and mastoids are clear. IMPRESSION: Atrophy and chronic ischemic change without acute infarct, hemorrhage or mass lesion Reviewed by: Emeka Wolf MD on 04/03/2023 12:41 PM [place] Approved by: Emeka Wolf MD on 04/03/2023 12:41 PM [facility] Station ID: [id number]
== END 2023-04-02 16:37 | disposition home or self-care (01) ==
LOC: DI 16:36
PROVIDERS: ATTEND Nurse Practitioner Family
DX: R41.81 Age-related cognitive decline (principal); G31.89 Other specified degenerative diseases of nervous system; I67.82 Cerebral ischemia

== ENCOUNTER 2023-04-25 14:13 | Emergency (ER) | payer OTHER ==
[2023-04-25 14:47] LABS: BASOPHILS % (AUTO) 0.3 %; EOSINOPHILS % (AUTO) 0.4 %; HCT - HEMATOCRIT 36.5 % (42.0-52.0); HGB - HEMOGLOBIN 11.4 g/dL (14.0-18.0); LYMPHOCYTES # (AUTO) 2.5 10^3/uL (1.5-3.5); LYMPHOCYTES % (AUTO) 25.5 %; MEAN CORPUSCULAR HEMOGLOBIN 30.3 pg (27.0-31.0); MEAN CORPUSCULAR HGB CONC 31.2 g/dL (32.0-36.0); MEAN CORPUSCULAR VOLUME 97.1 fL (80.0-94.0); MEAN PLATELET VOLUME 10.2 fL (7.4-11.4); MONOCYTES # (AUTO) 0.8 10^3/uL (0.0-1.0); MONOCYTES % (AUTO) 8.7 %; NEUTROPHILS # (AUTO) 6.2 10^3/uL (1.5-6.6); NEUTROPHILS % (AUTO) 64.2 %; PLT - PLATELET COUNT 200 10^3/uL (130-450); RED BLOOD COUNT 3.76 10^6/uL (4.70-6.10); RED CELL DISTRIBUTION WIDTH 14.4 % (12.0-15.0); WHITE BLOOD COUNT 9.6 x10^3/uL (4.8-10.8)
--- NOTE | 2023-04-25 14:57 | ED Physician Documentation ---
History of Present Illness - Stated complaint Stated Complaint: RT SIDE PX - Chief complaint Chief Complaint: Abd Pain - Additonal information Additional information: Patient 82-year-old male with past medical significant for recent hospital ization for left-sided rib fractures presenting with right-sided flank pain. Accompanied by daughter who is present at bedside. Endorses for severe colicky type flank pain that began this morning. No associated nausea, vomiting, diarrhea, constipation, dysuria, blood in urine. Currently reports feeling well and denies any pain. Review of Systems Constitutional: denies: Fever Eyes: denies: Loss of vision Ears: denies: Loss of hearing Nose: denies: Rhinorrhea / runny nose Throat: denies: Dental pain / toothache Cardiac: denies: Chest pain / pressure Respiratory: denies: Dyspnea GI: reports: Abdominal Pain : denies: Dysuria Skin: denies: Rash Musculoskeletal: denies: Neck pain Neurologic: denies: Generalized weakness Psychiatric: denies: Depressed PD PAST MEDICAL HISTORY - Past Medical History Cardiovascular: Hypertension, High cholesterol, Atrial fibrillation Respiratory: None Neuro: None Endocrine/Autoimmune: Type 2 diabetes GI: None : Benign prostate hypertrophy HEENT: None Psych: Depression Musculoskeletal: None Derm: None - Past Surgical History Past Surgical History: Yes Ortho: Amputation Derm: Skin cancer surgery - Present Medications Home Medications: Ambulatory Orders Medication Instructions Recorded Confirmed Atorvastatin Calcium [Lipitor] 80 mg PO DAILY 02/13/22 04/25/23 Cholecalciferol [Vitamin D3] 2,000 unit PO DAILY 02/13/22 04/25/23 Empagliflozin [Jardiance] 12.5 mg PO DAILY 02/13/22 04/25/23 Finasteride [Proscar] 5 mg PO DAILY PM 02/13/22 04/25/23 Loratadine [Claritin] 10 mg PO DAILY 02/13/22 04/25/23 Losartan [Cozaar] 50 mg PO DAILY 02/13/22 04/25/23 Metoprolol Succinate [Toprol Xl] 12.5 mg PO DAILY 02/13/22 04/25/23 Omeprazole 20 mg PO QDBREAKFAST 02/13/22 04/25/23 metFORMIN [Glucophage] 1,000 mg PO BID 02/13/22 04/25/23 polyethylene glycoL 3350(BULK) 17 gm PO DAILY #238 gm 03/28/23 04/25/23 [Miralax] DULoxetine [Cymbalta] 30 mg PO DAILY 04/25/23 04/25/23 Docusate Sodium 100Mg Capsule 100 mg PO BID #60 cap 04/25/23 [Colace 100Mg Capsule] Ferrous Sulfate [Feosol] 325 mg PO DAILY 04/25/23 04/25/23 polyethylene glycoL 3350 [Miralax] 17 gm PO DAILY #30 packet 04/25/23 - Allergies Allergies/Adverse Reactions: Allergies Allergy/AdvReac Type Severity Reaction Status Date / Time No Known Drug Allergies Allergy Verified 04/25/23 14:31 - Social History Does the pt smoke?: No Smoking Status: Never smoker Does the pt drink ETOH?: No Does the pt have substance abuse?: No - Immunizations Immunizations are current?: Yes - POLST Patient has POLST: No PD ED PE NORMAL - General General: Alert and oriented X 3, No acute distress - HEENT HEENT: Atraumatic - Neck Neck: Supple, no meningeal sign - Cardiac Cardiac: RRR - Respiratory Respiratory: No respiratory distress - Abdomen Abdomen: Normal bowel sounds - Male Male : Deferred - Rectal Rectal: Deferred - Back Back: No CVA TTP - Derm Derm: Normal color - Extremities Extremities: No tenderness to palpate - Neuro Neuro: Alert and oriented X 3, resin coater 2-12 intact, No motor deficit Results - Vitals Vitals: Vital Signs - 24 hr 04/25/23 04/25/23 04/25/23 14:22 15:23 16:00 Temperature 36.5 C Heart Rate 71 69 66 Respiratory 17 20 22 Rate Blood Pressure 166/86 H 193/87 H 181/90 H O2 Saturation 97 95 91 L 04/25/23 17:00 Temperature Heart Rate 75 Respiratory 20 Rate Blood Pressure 214/100 H O2 Saturation 96 Oxygen O2 Source Room air - Labs Labs: Laboratory Tests 04/25/23 04/25/23 04/25/23 14:40 14:40 17:43 WBC 9.6 RBC 3.76 L Hgb 11.4 L Hct 36.5 L MCV 97.1 H MCH 30.3 MCHC 31.2 L RDW 14.4 Plt Count 200 MPV 10.2 Neut # (Auto) 6.2 Lymph # (Auto) 2.5 Thayer # (Auto) 0.8 Eos # (Auto) 0.0 Baso # (Auto) 0.0 Absolute Nucleated RBC 0.00 Nucleated RBC % 0.0 Sodium 138 Potassium 3.8 Chloride 102 Carbon Dioxide 26 Anion Gap 10.0 BUN 18 Creatinine 1.0 Estimated GFR (MDRD) 72 L Glucose 120 H Calcium 9.5 Total Bilirubin 0.8 AST 13 ALT 8 L Alkaline Phosphatase 66 Total Protein 7.8 Albumin 4.3 Globulin 3.5 Albumin/Globulin Ratio 1.2 Lipase 29 Urine Color YELLOW Urine Clarity CLEAR Urine pH 6.0 Ur Specific [place] 1.020 Urine Protein 30 H Urine Glucose (UA) >=1000 H Urine Ketones TRACE Urine Occult Blood NEGATIVE Urine Nitrite NEGATIVE Urine Bilirubin NEGATIVE Urine Urobilinogen 0.2 (NORMAL) Ur Leukocyte Esterase NEGATIVE Urine RBC None Seen Urine WBC 0-3 Ur Squamous Epith Cells RARE Squamous Urine Bacteria None Seen Ur Microscopic Review INDICATED Urine Culture Comments NOT INDICATED PD Medical Decision Making - ED course Complexity details: reviewed old records, reviewed results, re-evaluated patient, considered differential, d/w patient ED course: Patient 82-year-old Male presenting with intermittent episodes of right-sided flank pain. Afebrile, he medically stable. On initial arrival patient reported no pain however while in the emergency department he began having intermittent episodes of right-sided flank cramping. He was given dose of fentanyl for symptomatic management and monitored carefully after receiving this medication. His lab work is all very reassuring. CT scan of his abdomen pelvis showed a periumbilical hernia on reevaluation this was found to be easily palpable and reducible. No indications incarceration, strangulation or obstruction at this time. Patient's flank pain abated shortly after receiving medications here in the emergency department. Repeat abdominal exam is benign. There is no sign of kidney stone. He does have a mild to moderate amount of fecalization in this area and I believe it is likely that he is suffering from some degree of constipation. I will initiate a bowel regimen. Nevertheless there does not appear to be any dangerous or life-threatening cause for symptoms at this time. I will refer him for follow-up with a general surgeon concerning his umbilical hernia. I discussed return precautions including strict instructions to return immediately for new or worsening pain, periumbilical pain, fever, persistent or worsening nausea, vomiting or other signs of obstruction. Departure - Departure Disposition: 01 Home, Self Care Clinical Impression: Flank pain, Constipation, Periumbilical hernia Instructions: Hernias Nb Follow-Up: Stalin Tripp MD [Provider Admit Priv/Credential] - Prescriptions: Docusate Sodium 100Mg Capsule [Colace 100Mg Capsule] 100 mg PO BID #60 cap polyethylene glycoL 3350 [Miralax] 17 gm PO DAILY #30 packet Comments: Thank you for allowing us to care for you today at [facility]. Today in the emergency department you are diagnosed with a periumbilical hernia. Attaches some information about this condition. The hernia appears easily and freely reducible here in the emergency department. He also had some signs of constipation on your CT scan. I written use the medications to act as a bowel regimen. I would like you to follow-up with a general surgeon concerning your hernia. Their information is in this contact paperwork. If it anytime your pain returns, worsens, becomes more persistent or if it is associated with nausea, vomiting, fever or signs of obstruction such as an inability to pass stool or gas please return to the emergency department immediately for reevaluation. Forms: PCP List
[2023-04-25 15:04] LABS: ALBUMIN 4.3 g/dL (3.2-5.5); ALBUMIN/GLOBULIN RATIO 1.2 (1.0-2.2); BILIRUBIN,TOTAL 0.8 mg/dL (0.2-1.0); CALCIUM 9.5 mg/dL (8.5-10.3); POTASSIUM 3.8 mmol/L (3.5-4.5); TOTAL PROTEIN 7.8 g/dL (6.4-8.9)
[2023-04-25] MEDS: ONDANSETRON 4 MG/2 ML VIAL IVP STA (15:43)
[2023-04-25] MEDS: fentaNYL 100 MCG/2 ML VIAL IVP STA (15:43)
[2023-04-25] MEDS: SODIUM CHLORIDE 0.9% 1,000 ML IV STA (16:00)
--- NOTE | 2023-04-25 17:23 | CT Report ---
PROCEDURE: Abdomen/Pelvis WO INDICATIONS: flank pain, suspect kidney stone TECHNIQUE: A CT scan of the abdomen and pelvis was performed without the use of intravenous contrast. Images we re recorded and evaluated at appropriate window settings. Reformats: coronal and sagittal. For radiat ion dose reduction, the following was used: automated exposure control, adjustment of mA and/or kV ac cording to patient size. COMPARISON: None. FINDINGS: Image quality: Diagnostic. Lower chest: A small hiatal hernia is incidentally noted. A mild degree of subpleural fibrotic change can be seen at the lung bases. Liver: No contour-deforming mass. Gallbladder and biliary tree: Within normal limits Spleen: No splenomegaly. Pancreas: No pancreatic ductal dilation. Adrenals: No adrenal nodule. Kidneys and ureters: No hydronephrosis. No renal cystic lesion which requires follow up. No solid mas s. Stomach, bowel and peritoneum: No bowel distension. No pathologic free fluid. Diverticulosis can be s een, without grady findings of active diverticulitis. Lymph nodes: No central or retroperitoneal adenopathy. Vessels: No infrarenal aortic aneurysm. Atherosclerotic calcification is seen. PELVIS Reproductive organs: Unremarkable. Bladder: No wall thickness, accounting for underdistention. Pelvic lymph nodes: No pelvic adenopathy by size criteria. Bones: No aggressive osseous abnormality. Other: No significant ventral or inguinal hernia. A moderate periumbilical hernia is seen, which cont ains fat and one loop of nondilated small bowel. IMPRESSION: No hydronephrosis or obstructing renal stone. There is a moderate peribronchial hernia seen, which contains fat and one small loop of small bowel. No findings of obstruction can be seen at this site. Additional findings: Small hiatal hernia Diverticulosis, without findings of active diverticulitis. Reviewed by: Juan Canales MD on 04/25/2023 4:22 PM [facility] Approved by: Juan Canales MD on 04/25/2023 4:22 PM [facility] Station ID: [id number]
[2023-04-25 17:55] LABS: BILIRUBIN,URINE NEGATIVE (NEGATIVE); GLUCOSE, URINE (UA) >=1000 mg/dL (NEGATIVE); KETONES,URINE (UA) TRACE mg/dL (NEGATIVE); LEUKOCYTE ESTERASE, URINE NEGATIVE (NEGATIVE); NITRITE,URINE NEGATIVE (NEGATIVE); OCCULT BLOOD,URINE NEGATIVE (NEGATIVE); PROTEIN,URINE 30 mg/dL (NEGATIVE); UROBILINOGEN,URINE 0.2 (NORMAL) E.U./dL (NORMAL)
[2023-04-25 17:56] LABS: CLARITY,URINE CLEAR (CLEAR)
[2023-04-25 18:07] LABS: RBC,URINE None Seen /HPF (0-5); WBC,URINE 0-3 /HPF (0-3)
[2023-04-25 18:08] LABS: BACTERIA,URINE None Seen /HPF (None Seen); SQUAMOUS EPITHELIAL CELL,UR RARE Squamous (<= Few)
[2023-04-25 18:33] VITALS: BP 192/100; O2SAT 94
== END 2023-04-25 18:29 | disposition home or self-care (01) ==
LOC: ED 14:13
DX: K42.9 Umbilical hernia without obstruction or gangrene (principal); K59.00 Constipation, unspecified; E11.9 Type 2 diabetes mellitus without complications; Z79.84 Long term (current) use of oral hypoglycemic drugs
CPT/HCPCS: 36415; 80053; 81001; 81003; 83690; 85025; 87086; 96374; 99283